=== PATIENT | male | born 1965 | race Caucasian/White ===

== ENCOUNTER 2019-07-25 05:40 | Inpatient (IN) | payer BC, OTHER ==
[~2019-07-25] VITALS: Ht 177.8 cm; Wt 101.1 kg
[2019-07-25] VITALS (17 sets, daily range): BP systolic 95–200; BP diastolic 52–109
[~2019-07-25 05:40] MED LIST: AMLO-363 PO; ASPI-529 PO; CARV-50 PO; CLOP75TA35 PO; FLO0.4C PO; heparin 10,000 units/1 ML INJ ONE; papaverine 30 mg/ml 2ml inj. ONE
[2019-07-25] MEDS ORDERED: aspirin 81mg tab.chew PO ONE ×2 (05:55)
[2019-07-25] MEDS ORDERED: normal saline 1000ML IV soln IVB ONE (05:55)
[2019-07-25] MEDS ORDERED: fentaNYL/PF 50MCG/1 ML 2ML syringe ONE (06:03)
[2019-07-25] MEDS ORDERED: midazolam 2 mg/2 ml injection ONE (06:03)
[2019-07-25] MEDS ORDERED: iohexol 350 MG/1 ML 200ml bottle ONE (06:04)
[2019-07-25] MEDS ORDERED: heparin 1,000unit/ml 10ml vial 10 ML ONE (06:04)
[2019-07-25] MEDS ORDERED: LIDOcaine 1% (10mg/ml)w/preservative injection 20ml MDV ONE (06:04)
[2019-07-25 06:06] LABS: EOSINOPHILS # (AUTO) 0.4 X10'3 (0-0.9); MONOCYTES # (AUTO) 0.9 X10'3 (0-0.9)
[2019-07-25] MEDS ORDERED: AZIL1TAB2 PO (06:08)
[2019-07-25] MEDS ORDERED: ASPI-1265 PO (06:08)
[2019-07-25] MEDS: nitroGLYCERIN-Tridil 50MG/D5W 250 ML IV PRN ×2 (06:16→07:28)
--- NOTE | 2019-07-25 06:16 | NUR ---
Pt transported to manager cath lab at this time with indoor plant technician.
[2019-07-25 06:23] LABS: BASOPHILS # (AUTO) 0.1 X10'3 (0-0.2); BASOPHILS % (AUTO) 0.7 % (0-1); EOSINOPHILS % (AUTO) 4.8 % (0-6); HEMATOCRIT 48.6 % (42.0-52.0); HEMOGLOBIN 16.4 g/dl (14.0-17.9); LYMPHOCYTES # (AUTO) 2.8 X10'3 (1.1-4.8); MEAN CORPUSCULAR HEMOGLOBIN 29.7 PG (27.0-31.0); MEAN CORPUSCULAR HGB CONC 33.8 g/dL (33.0-36.5); MEAN PLATELET VOLUME 8.9 FL (7.4-10.4); MONOCYTES % (AUTO) 10.8 % (2-12); NEUTROPHILS # (AUTO) 3.9 X10'3 (1.8-7.7); NEUTROPHILS % (AUTO) 48.7 % (42-75); PLATELET COUNT 226 X10'3 (140-440); RED BLOOD COUNT 5.52 X10'6 (4.70-6.10); RED CELL DISTRIBUTION WIDTH 13.3 % (11.5-14.5)
[2019-07-25 06:28] LABS: ALANINE AMINOTRANSFERASE 26 U/L (12-78); ALBUMIN 3.8 G/DL (3.4-5.0); ALBUMIN/GLOBULIN RATIO 1.1 (1.1-1.5); ALKALINE PHOSPHATASE 89 IU/L (46-116); ANION GAP 11 (8-16); ASPARTATE AMINO TRANSFERASE 21 U/L (10-37); BILIRUBIN,TOTAL 0.9 MG/DL (0.1-1.0); BLOOD UREA NITROGEN 16 MG/DL (7-18); BUN/CREATININE RATIO 13.8 (5.4-32.0); CALCIUM 8.9 MG/DL (8.5-10.1); CHLORIDE 107 MMOL/L (99-107); CREATININE 1.16 MG/DL (0.60-1.10); GLUCOSE 108 MG/DL (70-104); POTASSIUM 3.2 MMOL/L (3.5-5.1); SODIUM 144 MMOL/L (135-145); TOTAL CARBON DIOXIDE 26.2 MMOL/L (24-32); TOTAL PROTEIN 7.3 G/DL (6.4-8.2); eGFR 66 ML/MIN
[2019-07-25] MEDS ORDERED: atropine 0.1mg/ml 10ml syringe ONE (06:35)
[2019-07-25 06:38] LABS: PARTIAL THROMBOPLASTIN TIME 26 SECONDS (22-32)
[2019-07-25 06:44] LABS: MAGNESIUM 2.3 MG/DL (1.5-2.4)
[2019-07-25] MEDS ORDERED: Insulin Reg/NS 100units/100mL 100 ML IV SCH ×2 (07:07→14:41)
[2019-07-25] MEDS ORDERED: gabapentin 400mg capsule PO ONE (07:10)
[2019-07-25] MEDS ORDERED: MESSAGE TO NURSING PO ONE ×5 (07:10→10:00)
[2019-07-25] MEDS ORDERED: MALTODEXTRIN/FRUCTOSE 0.68 KCAL/ML LIQUID 296ML BOTTLE PO ONE (07:10)
[2019-07-25] MEDS ORDERED: magnesium 4gm in 100ml NS 100 ML IV PRN (07:10)
[2019-07-25] MEDS ORDERED: potassium Cl 20mEq/100mL bag 100 ML IV PRN (07:10)
[2019-07-25] MEDS ORDERED: dextrose 50%-water 50ml dispensing syringe IV PRN ×2 (07:10→14:45)
[2019-07-25] MEDS ORDERED: insulin glargine (Lantus) pen - multi-dose SQ PRN ×2 (07:10→14:45)
[2019-07-25] MEDS ORDERED: cefazolin/dext.iso 2gm/50ml 50 ML IV ONE (07:10)
[2019-07-25] MEDS ORDERED: magnesium 2GM in 50ml NS 50 ML IV PRN (07:10)
[2019-07-25] MEDS ORDERED: potassium Cl 20 mEq SR tablet PO PRN ×2 (07:10→14:45)
[2019-07-25] MEDS ORDERED: vancomycin/NS 1 GM ADD-VANTAGE 250 ML IV ONE (07:10)
--- NOTE | 2019-07-25 07:30 | NUR ---
received from tailings dam laborer. placed on monitor, Barbi DE LEÓN talked with pt.
[2019-07-25] MEDS ORDERED: metoprolol tartrate 12.5mg (1/2 tablet) PO SCH (08:00)
[2019-07-25] MEDS ORDERED: mupirocin 2% nasal ointment 1gm UD NS SCH (08:00)
[2019-07-25] MEDS ORDERED: heparin 25,000 UNIT/250ml bag 250 ML IV SCH (08:22)
[2019-07-25] MEDS ORDERED: heparin 10,000 units/1 ML INJ IV PRN (08:25)
[2019-07-25] MEDS ORDERED: acetaminophen 325mg tablet PO PRN ×3 (08:25→14:45)
[2019-07-25] MEDS ORDERED: heparin 10,000 units/1 ML INJ IV ONE (08:25)
[2019-07-25] MEDS ORDERED: proCHLORperazine 10 MG/2 ml inj IV PRN (08:25)
[2019-07-25] MEDS ORDERED: ondansetron/PF 4mg/2ml inj IV PRN ×2 (08:25→14:45)
[2019-07-25] MEDS ORDERED: HYDROcodone/acetaminophen 10/325mg tab PO PRN (08:25)
[2019-07-25] MEDS ORDERED: HYDROcodone/acetaminophen 5mg/325mg tablet PO PRN (08:25)
[2019-07-25] MEDS ORDERED: ringers solution, lacted 1,000 ML IV ONE (08:35)
[2019-07-25 08:42] LABS: ALBUMIN 3.4 G/DL (3.4-5.0); ANION GAP 10 (8-16); BLOOD UREA NITROGEN 14 MG/DL (7-18); BUN/CREATININE RATIO 12.4 (5.4-32.0); CALCIUM 8.3 MG/DL (8.5-10.1); CHLORIDE 108 MMOL/L (99-107); CHOL/HDL RATIO 4.9 (0.00-4.99); CHOLESTEROL 249 MG/DL (0-200); CREATININE 1.13 MG/DL (0.60-1.10); GLUCOSE 125 MG/DL (70-104); HDL CHOLESTEROL 51 MG/DL (35-60); LDL CHOLESTEROL 166 MG/DL (50-100); POTASSIUM 3.3 MMOL/L (3.5-5.1); SODIUM 142 MMOL/L (135-145); TOTAL CARBON DIOXIDE 24.4 MMOL/L (24-32); TRIGLYCERIDES 41 MG/DL (20-135); eGFR 68 ML/MIN
[2019-07-25 08:50] LABS: ABG BASE EXCESS -0.9 mmol/L (-2.0-3.0); ABG HCO3 23.6 mmol/L (22.0-26.0); ABG OXYGEN SATURATION 94.1 % (95-98); ABG PO2 (T) 69.4 mmHg (83-108); ALLEN'S TEST POSITIVE; FCOHb 1.4 % (0.5-1.5); FMetHb 0.3 % (0.3-1.12); FO2Hb 92.5 % (94-100); TOTAL HEMOGLOBIN 15.6 G/dl (14.0-17.9)
[2019-07-25 08:59] LABS: HEMOGLOBIN A1C 5.6 % (4.5-6.2)
--- NOTE | 2019-07-25 09:15 | NUR ---
report to Rafita PATIÑO. BP labile on NTG gtt. at rest 90-100 when talking on phone or interacting with staff up to SBP up to 200.
[2019-07-25] MEDS ORDERED: SUFENTANIL CITRATE 50 MCG/ML 2ml ampule IV ONE (09:51)
[2019-07-25] MEDS ORDERED: MIDAZolam 1mg/ml 10ml vial ONE (09:51)
[2019-07-25] MEDS ORDERED: 0.9 % SODIUM CHLORIDE 10 ML VIAL ONE ×5 (09:51→11:25)
[2019-07-25] MEDS ORDERED: heparin 10,000 units/1 ML INJ IR ONE (10:00)
[2019-07-25] MEDS ORDERED: papaverine 30 mg/ml 2ml inj. IA ONE (10:10)
[2019-07-25] MEDS ORDERED: isoflurane 100ml inhalation liquid IH ONE (10:15)
[2019-07-25] MEDS ORDERED: heparin 1,000 units/ml 10ml inj ONE (10:15)
[2019-07-25] MEDS ORDERED: DOPamine/D5W 400mg/250ml bag IV ONE (10:15)
[2019-07-25] MEDS ORDERED: protamine sulf. 10mg/ml inj. IV ONE (10:15)
[2019-07-25] MEDS ORDERED: NORepinephrine 8 MG in NS 250 ML BAG (32 mcg/ml) IV ONE (10:15)
[2019-07-25] MEDS ORDERED: nitroGLYCERIN in D5W 50mg/250ml (Tridil) infusion IV ONE (10:15)
[2019-07-25] MEDS ORDERED: aminocaproic acid 250 MG/1 ML inj. ONE (10:15)
--- NOTE | 2019-07-25 10:20 | NUR ---
Pt off unit to CVOR.
[2019-07-25 11:05] LABS: ABG BASE EXCESS -2.1 mmol/L (-2.0-3.0); ABG HCO3 24.3 mmol/L (22.0-26.0); ABG OXYGEN SATURATION 99.2 % (95-98); ABG PCO2 47.6 mmHg (35.0-45.0); ABG PH 7.326 (7.350-7.450); ABG PO2 223.9 mmHg (60.0-100.0); CL (ABG) 105 mmol/L (99-107); FCOHb 1.5 % (0.5-1.5); FMetHb 0.3 % (0.3-1.12); FO2Hb 97.4 % (94-100); GLUCOSE (ABG) 172 mg/dl (70-104); IONIZED CA (ABG) 1.14 mmol/L (1.03-1.32); K (ABG) 3.1 mmol/L (3.3-5.1); NA (ABG) 138 mmol/L (135-145); TOTAL HEMOGLOBIN 14.7 G/dl (14.0-17.9)
[2019-07-25] MEDS ORDERED: ceFAZolin 1000mg inj ONE (11:16)
[2019-07-25] MEDS ORDERED: metoclopramide 5 mg/ml inj ONE (11:24)
[2019-07-25] MEDS ORDERED: LIDOcaine 2% (20mg/ml) 5ml vial ONE (11:25)
[2019-07-25] MEDS ORDERED: phenylephrine 10mg/ml inj. ONE (11:25)
[2019-07-25] MEDS ORDERED: ePHEDrine 50MG/ML INJ. ONE (11:25)
[2019-07-25] MEDS ORDERED: rocuronium 10mg/ml inj IV ONE ×2 (11:25)
[2019-07-25] MEDS ORDERED: propofol inj 20 ML IV ONE (11:25)
[2019-07-25] MEDS ORDERED: pancuronium br 1mg/ml inj IV ONE (11:42)
[2019-07-25 11:46] LABS: ABG BASE EXCESS -2.1 mmol/L (-2.0-3.0); ABG HCO3 22.3 mmol/L (22.0-26.0); ABG OXYGEN SATURATION 99.4 % (95-98); ABG PCO2 37.4 mmHg (35.0-45.0); ABG PH 7.394 (7.350-7.450); ABG PO2 236.8 mmHg (60.0-100.0); CL (ABG) 105 mmol/L (99-107); FCOHb 1.5 % (0.5-1.5); FMetHb 0.1 % (0.3-1.12); FO2Hb 97.8 % (94-100); GLUCOSE (ABG) 140 mg/dl (70-104); IONIZED CA (ABG) 1.11 mmol/L (1.03-1.32); K (ABG) 3.4 mmol/L (3.3-5.1); NA (ABG) 136 mmol/L (135-145); TOTAL HEMOGLOBIN 14.1 G/dl (14.0-17.9)
[2019-07-25] MEDS ORDERED: midazolam 2 mg/2 ml injection IV ONE (12:10)
[2019-07-25] MEDS ORDERED: fentaNYL/PF 50MCG/1 ML 2ML syringe IV PRN (12:10)
[2019-07-25 12:21] LABS: ABG BASE EXCESS -0.9 mmol/L (-2.0-3.0); ABG HCO3 23.1 mmol/L (22.0-26.0); ABG OXYGEN SATURATION 99.2 % (95-98); ABG PCO2 35.8 mmHg (35.0-45.0); ABG PH 7.427 (7.350-7.450); ABG PO2 243.4 mmHg (60.0-100.0); CL (ABG) 104 mmol/L (99-107); FCOHb 1.2 % (0.5-1.5); FMetHb 0.5 % (0.3-1.12); FO2Hb 97.5 % (94-100); GLUCOSE (ABG) 119 mg/dl (70-104); IONIZED CA (ABG) 1.04 mmol/L (1.03-1.32); K (ABG) 4.1 mmol/L (3.3-5.1); NA (ABG) 133 mmol/L (135-145); TOTAL HEMOGLOBIN 12.6 G/dl (14.0-17.9)
[2019-07-25 12:40] LABS: ABG BASE EXCESS -2.9 mmol/L (-2.0-3.0); ABG OXYGEN SATURATION 99.1 % (95-98); ABG PCO2 38.9 mmHg (35.0-45.0); ABG PH 7.371 (7.350-7.450); ABG PO2 230.3 mmHg (60.0-100.0); CL (ABG) 104 mmol/L (99-107); FCOHb 1.1 % (0.5-1.5); FMetHb 0.5 % (0.3-1.12); FO2Hb 97.5 % (94-100); GLUCOSE (ABG) 115 mg/dl (70-104); IONIZED CA (ABG) 1.08 mmol/L (1.03-1.32); K (ABG) 4.3 mmol/L (3.3-5.1); NA (ABG) 134 mmol/L (135-145); TOTAL HEMOGLOBIN 13.1 G/dl (14.0-17.9)
[2019-07-25 13:00] LABS: ABG BASE EXCESS -2.4 mmol/L (-2.0-3.0); ABG HCO3 23.4 mmol/L (22.0-26.0); ABG OXYGEN SATURATION 99.1 % (95-98); ABG PCO2 44.1 mmHg (35.0-45.0); ABG PH 7.343 (7.350-7.450); ABG PO2 236.1 mmHg (60.0-100.0); CL (ABG) 104 mmol/L (99-107); FCOHb 1.1 % (0.5-1.5); FMetHb 0.6 % (0.3-1.12); FO2Hb 97.4 % (94-100); GLUCOSE (ABG) 132 mg/dl (70-104); IONIZED CA (ABG) 1.08 mmol/L (1.03-1.32); K (ABG) 4.3 mmol/L (3.3-5.1); NA (ABG) 135 mmol/L (135-145); TOTAL HEMOGLOBIN 13.1 G/dl (14.0-17.9)
[2019-07-25 13:35] LABS: ABG BASE EXCESS 0.1 mmol/L (-2.0-3.0); ABG HCO3 26.2 mmol/L (22.0-26.0); ABG OXYGEN SATURATION 98.1 % (95-98); ABG PCO2 48.7 mmHg (35.0-45.0); ABG PH 7.348 (7.350-7.450); ABG PO2 126.7 mmHg (60.0-100.0); CL (ABG) 102 mmol/L (99-107); FCOHb 1.3 % (0.5-1.5); FMetHb 0.5 % (0.3-1.12); FO2Hb 96.3 % (94-100); GLUCOSE (ABG) 138 mg/dl (70-104); IONIZED CA (ABG) 1.45 mmol/L (1.03-1.32); K (ABG) 4.1 mmol/L (3.3-5.1); NA (ABG) 132 mmol/L (135-145); TOTAL HEMOGLOBIN 12.1 G/dl (14.0-17.9)
[2019-07-25 13:51] LABS: ABG BASE EXCESS -2.2 mmol/L (-2.0-3.0); ABG HCO3 21.9 mmol/L (22.0-26.0); ABG OXYGEN SATURATION 97.2 % (95-98); ABG PCO2 35.5 mmHg (35.0-45.0); ABG PH 7.409 (7.350-7.450); ABG PO2 94.9 mmHg (60.0-100.0); CL (ABG) 104 mmol/L (99-107); FCOHb 1.1 % (0.5-1.5); FMetHb 0.4 % (0.3-1.12); FO2Hb 95.7 % (94-100); GLUCOSE (ABG) 130 mg/dl (70-104); IONIZED CA (ABG) 1.23 mmol/L (1.03-1.32); K (ABG) 4.1 mmol/L (3.3-5.1); NA (ABG) 133 mmol/L (135-145); TOTAL HEMOGLOBIN 12.1 G/dl (14.0-17.9)
--- NOTE | 2019-07-25 14:40 | NUR ---
Received to room , accompanied by MDs and surgical crew. Placed on ventilator, to environmental monitoring specialist, arterial line and PA line pressure monitored. Chest tubes to suction at 20 cm. Farrell cath to gravity drainage. Dressings are dry and intact. See assessment record. All vasoactive drugs are infusing via central line.
[2019-07-25] MEDS ORDERED: nitroGLYCERIN-Tridil 50MG/D5W 250 ML IV PRN ×2 (14:41→14:55)
[2019-07-25] MEDS ORDERED: niCARDipine-NS 40mg/200ml IVPB 200 ML IV PRN ×2 (14:41→14:55)
[2019-07-25] MEDS ORDERED: DOPamine 400mg/D5W 250ml 250 ML IV PRN ×2 (14:41→14:54)
[2019-07-25] MEDS ORDERED: magnesium citrate 296ml oral solution PO PRN (14:45)
[2019-07-25] MEDS ORDERED: normal saline 250ml IV soln 250 ML IV PRN (14:45)
[2019-07-25] MEDS ORDERED: pantoprazole 40 MG vial IV ONE (14:45)
[2019-07-25] MEDS ORDERED: mineral oil 133ml enema RC PRN (14:45)
[2019-07-25] MEDS ORDERED: Neutra Phos packet PO PRN (14:45)
[2019-07-25] MEDS ORDERED: magnesium hydroxide 30ml (MOM) UD suspension PO PRN (14:45)
[2019-07-25] MEDS ORDERED: morphine 4 MG/ML inj SYRINge IV PRN (14:45)
[2019-07-25] MEDS ORDERED: sodium phosphate inj. 30 MMOL in dextrose 5%-water 250 ML IV PRN (14:45)
[2019-07-25] MEDS ORDERED: metoclopramide 5 mg/ml inj IV PRN (14:45)
[2019-07-25] MEDS ORDERED: bisacodyl 10mg suppository rectal RC PRN (14:45)
[2019-07-25] MEDS ORDERED: sodium phosphate inj. 15 MMOL in dextrose 5%-water 250 ML IV PRN (14:45)
[2019-07-25] MEDS ORDERED: ceFAZolin 1GM/D5W- ADD-VANTAGE 50 ML IV ONE (14:55)
[2019-07-25 15:05] LABS: ABG BASE EXCESS -3.1 mmol/L (-2.0-3.0); ABG HCO3 21.6 mmol/L (22.0-26.0); ABG OXYGEN SATURATION 96.8 % (95-98); ABG PCO2 (T) 37.7 mmHg (35.0-45.0); ABG PH (T) 7.376 (7.350-7.450); FCOHb 0.7 % (0.5-1.5); FLOW 35 L/min; FMetHb 0.4 % (0.3-1.12); FO2Hb 95.7 % (94-100); PEEP 5 cm H2O; RESPIRATORY RATE 14 b/min; TIDAL VOLUME 650 mL; TOTAL HEMOGLOBIN 14.7 G/dl (14.0-17.9)
[2019-07-25] MEDS: ceFAZolin 1GM/D5W- ADD-VANTAGE 50 ML IV SCH (15:09)
[2019-07-25] MEDS: Insulin Reg/NS 100units/100mL 100 ML IV SCH (15:13)
[2019-07-25] MEDS: sodium chloride 0.45% 1,000 ML IV SCH (15:14)
[2019-07-25 15:21] LABS: BASOPHILS % (AUTO) 0.1 % (0-1); EOSINOPHILS # (AUTO) 0.1 X10'3 (0-0.9); EOSINOPHILS % (AUTO) 0.5 % (0-6); HEMATOCRIT 42.5 % (42.0-52.0); HEMOGLOBIN 14.1 g/dl (14.0-17.9); LYMPHOCYTES # (AUTO) 0.8 X10'3 (1.1-4.8); LYMPHOCYTES % (AUTO) 4.1 % (21-51); MEAN CORPUSCULAR HEMOGLOBIN 29.5 PG (27.0-31.0); MEAN CORPUSCULAR HGB CONC 33.2 g/dL (33.0-36.5); MEAN CORPUSCULAR VOLUME 88.7 FL (78-98); MEAN PLATELET VOLUME 9.2 FL (7.4-10.4); MONOCYTES # (AUTO) 0.5 X10'3 (0-0.9); MONOCYTES % (AUTO) 2.9 % (2-12); NEUTROPHILS % (AUTO) 92.4 % (42-75); PLATELET COUNT 176 X10'3 (140-440); RED BLOOD COUNT 4.79 X10'6 (4.70-6.10); RED CELL DISTRIBUTION WIDTH 13.7 % (11.5-14.5); WHITE BLOOD COUNT 18.4 X10'3 (4.5-11.0)
[2019-07-25 15:34] LABS: ALANINE AMINOTRANSFERASE 21 U/L (12-78); ALBUMIN 3.2 G/DL (3.4-5.0); ALBUMIN/GLOBULIN RATIO 1.5 (1.1-1.5); ALKALINE PHOSPHATASE 65 IU/L (46-116); ANION GAP 7 (8-16); ASPARTATE AMINO TRANSFERASE 34 U/L (10-37); BILIRUBIN,TOTAL 1.3 MG/DL (0.1-1.0); BLOOD UREA NITROGEN 14 MG/DL (7-18); BUN/CREATININE RATIO 11.6 (5.4-32.0); CALCIUM 8.4 MG/DL (8.5-10.1); CHLORIDE 109 MMOL/L (99-107); CREATININE 1.21 MG/DL (0.60-1.10); GLUCOSE 149 MG/DL (70-104); MAGNESIUM 2.8 MG/DL (1.5-2.4); PHOSPHORUS 2.1 MG/DL (2.3-4.5); POTASSIUM 3.5 MMOL/L (3.5-5.1); SODIUM 141 MMOL/L (135-145); TOTAL CARBON DIOXIDE 24.7 MMOL/L (24-32); TOTAL PROTEIN 5.4 G/DL (6.4-8.2); eGFR 63 ML/MIN
[2019-07-25 15:58] LABS: PARTIAL THROMBOPLASTIN TIME 31 SECONDS (22-32)
--- NOTE | 2019-07-25 16:00 | NUR ---
Dr. Soni rounded. Discussed additional dose of Ancef ordered. Ordered to hold dose.
[2019-07-25] MEDS: potassium Cl 20mEq/100mL bag 100 ML IV PRN ×4 (16:07→23:30)
[2019-07-25] MEDS: morphine 4 MG/ML inj SYRINge IV PRN ×3 (16:25→22:15)
[2019-07-25] MEDS: albumin (Human) 5% 250ml 250 ML IV PRN ×2 (17:22→17:25)
[2019-07-25 17:36] LABS: ABG BASE EXCESS -5.7 mmol/L (-2.0-3.0); ABG HCO3 19.3 mmol/L (22.0-26.0); ABG OXYGEN SATURATION 93.9 % (95-98); ABG PCO2 (T) 36.2 mmHg (35.0-45.0); ABG PH (T) 7.345 (7.350-7.450); ABG PO2 (T) 74.7 mmHg (83-108); FMetHb 0.3 % (0.3-1.12); FO2Hb 93.6 % (94-100); PEEP 5 cm H2O; TOTAL HEMOGLOBIN 13.6 G/dl (14.0-17.9)
--- NOTE | 2019-07-25 18:10 | NUR ---
Problems reprioritized. Patient report given, questions answered & plan of care reviewed with KAYLYN Francis.
--- NOTE | 2019-07-25 18:40 | NUR ---
Received report on pt in room 2044 from KAYLYN Irene. Pt awake and alert, speech is clear, denied numbness and tingling, moving all extremities. Tridil, Dopamine, and Insulin infusing via CVL to maintain parameters. Pt on 4L NC maintaining O2 sat greater than 93. Chest tubes to suction at 20 cm with serosanguinous output, symmetrical rise and fall of chest cavity with no crepitus noted, dressings are clean, dry, and intact. On school bus monitor with arterial line, CVP, and PA line pressures monitored. Farrell cath to gravity drainage with optimal urine output. Bowel sounds hypoactive, pt only tolerating ice chips at this time. See assessment record.
--- NOTE | 2019-07-25 19:20 | NUR ---
Updated Dr Soni via phone on pts status.
[2019-07-25] MEDS: HYDROcodone/acetaminophen 10/325mg tab PO PRN (20:03)
[2019-07-25] MEDS: vancomycin/NS 1 GM ADD-VANTAGE 250 ML IV SCH (20:08)
[2019-07-25] MEDS: mupirocin 2% ointment 22GM NS SCH (20:08)
[2019-07-25] MEDS: gabapentin 300mg capsule PO SCH (20:13)
[2019-07-25] MEDS: sennosides/docusate sodium tablet PO SCH (20:13)
--- NOTE | 2019-07-25 20:15 | NUR ---
Spoke with pts , updated her on status and plan of care. All questions/concerns addressed.
--- NOTE | 2019-07-25 21:15 | NUR ---
Assisted pt to facetime and son.
[2019-07-25 21:56] LABS: BASOPHILS % (AUTO) 0.1 % (0-1); EOSINOPHILS % (AUTO) 0 % (0-6); HEMATOCRIT 37.7 % (42.0-52.0); HEMOGLOBIN 12.6 g/dl (14.0-17.9); LYMPHOCYTES # (AUTO) 0.3 X10'3 (1.1-4.8); MEAN CORPUSCULAR HGB CONC 33.5 g/dL (33.0-36.5); MEAN CORPUSCULAR VOLUME 89.6 FL (78-98); MEAN PLATELET VOLUME 9.1 FL (7.4-10.4); MONOCYTES # (AUTO) 0.4 X10'3 (0-0.9); MONOCYTES % (AUTO) 2.8 % (2-12); NEUTROPHILS # (AUTO) 13.7 X10'3 (1.8-7.7); NEUTROPHILS % (AUTO) 95.1 % (42-75); PLATELET COUNT 163 X10'3 (140-440); RED CELL DISTRIBUTION WIDTH 13.4 % (11.5-14.5); WHITE BLOOD COUNT 14.4 X10'3 (4.5-11.0)
[2019-07-25 22:08] LABS: ALBUMIN 3.4 G/DL (3.4-5.0); ANION GAP 11 (8-16); BLOOD UREA NITROGEN 13 MG/DL (7-18); BUN/CREATININE RATIO 9.2 (5.4-32.0); CHLORIDE 110 MMOL/L (99-107); CREATININE 1.41 MG/DL (0.60-1.10); GLUCOSE 119 MG/DL (70-104); PHOSPHORUS 2.5 MG/DL (2.3-4.5); POTASSIUM 3.7 MMOL/L (3.5-5.1); SODIUM 145 MMOL/L (135-145); TOTAL CARBON DIOXIDE 23.8 MMOL/L (24-32); eGFR 53 ML/MIN
--- NOTE | 2019-07-25 22:45 | NUR ---
Spoke with pts , updated on pts condition
--- NOTE | 2019-07-25 22:50 | NUR ---
Removed R groin sheath that was placed in laborer shaft sinking per Dr Soni. Held pressure manually for 20 mins and applied Femostop at 2245, no complications, pt tolerated well.
[2019-07-25] MEDS: magnesium 4gm in 100ml NS 100 ML IV PRN (23:43)
[2019-07-26] VITALS (24 sets, daily range): BP systolic 89–145; BP diastolic 43–100
[2019-07-26] MEDS: ceFAZolin 1GM/D5W- ADD-VANTAGE 50 ML IV SCH ×3 (00:07→16:11)
[2019-07-26] MEDS: potassium Cl 20mEq/100mL bag 100 ML IV PRN ×4 (01:00→05:48)
[2019-07-26] MEDS: HYDROcodone/acetaminophen 10/325mg tab PO PRN ×5 (01:00→19:07)
--- NOTE | 2019-07-26 01:15 | NUR ---
Spoke with pts , updated her on pts condition.
[2019-07-26 04:41] LABS: BASOPHILS % (AUTO) 0.1 % (0-1); EOSINOPHILS % (AUTO) 0 % (0-6); HEMATOCRIT 36.6 % (42.0-52.0); HEMOGLOBIN 12.3 g/dl (14.0-17.9); LYMPHOCYTES # (AUTO) 0.9 X10'3 (1.1-4.8); LYMPHOCYTES % (AUTO) 5.2 % (21-51); MEAN CORPUSCULAR HGB CONC 33.7 g/dL (33.0-36.5); MEAN PLATELET VOLUME 9.5 FL (7.4-10.4); MONOCYTES % (AUTO) 6.2 % (2-12); NEUTROPHILS # (AUTO) 14.4 X10'3 (1.8-7.7); NEUTROPHILS % (AUTO) 88.5 % (42-75); PLATELET COUNT 137 X10'3 (140-440); RED BLOOD COUNT 4.11 X10'6 (4.70-6.10); RED CELL DISTRIBUTION WIDTH 13.6 % (11.5-14.5); WHITE BLOOD COUNT 16.3 X10'3 (4.5-11.0)
[2019-07-26 04:51] LABS: ALANINE AMINOTRANSFERASE 22 U/L (12-78); ALBUMIN 3.2 G/DL (3.4-5.0); ALBUMIN/GLOBULIN RATIO 1.2 (1.1-1.5); ALKALINE PHOSPHATASE 54 IU/L (46-116); ANION GAP 8 (8-16); ASPARTATE AMINO TRANSFERASE 46 U/L (10-37); BILIRUBIN,TOTAL 1.3 MG/DL (0.1-1.0); BLOOD UREA NITROGEN 13 MG/DL (7-18); BUN/CREATININE RATIO 11.4 (5.4-32.0); CALCIUM 8.1 MG/DL (8.5-10.1); CHLORIDE 110 MMOL/L (99-107); CREATININE 1.14 MG/DL (0.60-1.10); GLUCOSE 115 MG/DL (70-104); MAGNESIUM 2.6 MG/DL (1.5-2.4); PHOSPHORUS 2.9 MG/DL (2.3-4.5); SODIUM 142 MMOL/L (135-145); TOTAL CARBON DIOXIDE 23.8 MMOL/L (24-32); TOTAL PROTEIN 5.8 G/DL (6.4-8.2); eGFR 67 ML/MIN
[2019-07-26 04:56] LABS: PARTIAL THROMBOPLASTIN TIME 24 SECONDS (22-32); POTASSIUM 4.4 MMOL/L (3.5-5.1)
--- NOTE | 2019-07-26 05:51 | NUR ---
Art line no longer working despite multiple interventions, removed per charge nurse.
[2019-07-26] MEDS ORDERED: famotidine/PF 10 mg/ml inj IV ONE (06:00)
[2019-07-26] MEDS ORDERED: LORazepam 2 mg/ml vial IV ONE (06:00)
--- NOTE | 2019-07-26 06:14 | NUR ---
Problems reprioritized. Patient report given, questions answered & plan of care reviewed with KAYLYN Damon.
[2019-07-26] MEDS: sennosides/docusate sodium tablet PO SCH ×2 (07:16→22:36)
[2019-07-26] MEDS: mupirocin 2% ointment 22GM NS SCH ×2 (07:16→22:37)
[2019-07-26] MEDS: aspirin 325mg tablet, delayed-release (Ecotrin) PO SCH (07:16)
[2019-07-26] MEDS: vancomycin/NS 1 GM ADD-VANTAGE 250 ML IV SCH ×2 (07:16→19:06)
[2019-07-26] MEDS: gabapentin 300mg capsule PO SCH ×3 (07:16→22:37)
[2019-07-26] MEDS: metoprolol tartrate 12.5mg (1/2 tablet) PO SCH ×2 (07:16→22:37)
[2019-07-26 07:55] LABS: ACTIVATED CLOTTING TIME 105 SEC (101-148)
[2019-07-26] MEDS ORDERED: atorvastatin 10mg tablet PO SCH (08:00)
[2019-07-26] MEDS ORDERED: ketorolac tromethamine 15mg/ml inj. IV ONE (09:00)
[2019-07-26] MEDS: ketorolac tromethamine 15mg/ml inj. IV SCH ×2 (13:34→19:09)
[2019-07-26] MEDS ORDERED: mineral oil/petrolatum ophthal oint EACHEYE SCH (14:00)
[2019-07-26] MEDS: Insulin Reg/NS 100units/100mL 100 ML IV SCH (23:06)
[2019-07-27] VITALS (24 sets, daily range): BP systolic 122–159; BP diastolic 69–102
[2019-07-27] MEDS: ceFAZolin 1GM/D5W- ADD-VANTAGE 50 ML IV SCH (00:07)
[2019-07-27] MEDS: ketorolac tromethamine 15mg/ml inj. IV SCH ×4 (02:07→19:53)
[2019-07-27 02:49] LABS: BASOPHILS % (AUTO) 0.1 % (0-1); EOSINOPHILS % (AUTO) 0 % (0-6); HEMATOCRIT 33.2 % (42.0-52.0); LYMPHOCYTES # (AUTO) 1.2 X10'3 (1.1-4.8); LYMPHOCYTES % (AUTO) 7.4 % (21-51); MEAN CORPUSCULAR HEMOGLOBIN 29.7 PG (27.0-31.0); MEAN CORPUSCULAR HGB CONC 33.1 g/dL (33.0-36.5); MEAN CORPUSCULAR VOLUME 89.7 FL (78-98); MEAN PLATELET VOLUME 9.1 FL (7.4-10.4); MONOCYTES # (AUTO) 1.1 X10'3 (0-0.9); MONOCYTES % (AUTO) 6.8 % (2-12); NEUTROPHILS % (AUTO) 85.7 % (42-75); PLATELET COUNT 121 X10'3 (140-440); RED CELL DISTRIBUTION WIDTH 13.6 % (11.5-14.5); WHITE BLOOD COUNT 16.3 X10'3 (4.5-11.0)
[2019-07-27 02:58] LABS: ANION GAP 7 (8-16); BLOOD UREA NITROGEN 25 MG/DL (7-18); BUN/CREATININE RATIO 21.6 (5.4-32.0); CALCIUM 8.1 MG/DL (8.5-10.1); CHLORIDE 108 MMOL/L (99-107); CREATININE 1.16 MG/DL (0.60-1.10); GLUCOSE 131 MG/DL (70-104); MAGNESIUM 2.2 MG/DL (1.5-2.4); PHOSPHORUS 3.2 MG/DL (2.3-4.5); POTASSIUM 4.7 MMOL/L (3.5-5.1); SODIUM 142 MMOL/L (135-145); TOTAL CARBON DIOXIDE 26.9 MMOL/L (24-32); eGFR 66 ML/MIN
[2019-07-27] MEDS: HYDROcodone/acetaminophen 10/325mg tab PO PRN ×3 (04:12→19:53)
[2019-07-27] MEDS: magnesium 2GM in 50ml NS 50 ML IV PRN (04:44)
[2019-07-27] MEDS ORDERED: furosemide 40mg/4ml inj IV ONE (06:55)
[2019-07-27] MEDS: gabapentin 300mg capsule PO SCH ×2 (07:18→13:31)
[2019-07-27] MEDS: pantoprazole 40mg Tablet.DR PO SCH (07:18)
[2019-07-27] MEDS: sennosides/docusate sodium tablet PO SCH ×2 (07:18→19:52)
[2019-07-27] MEDS: aspirin 325mg tablet, delayed-release (Ecotrin) PO SCH (07:19)
[2019-07-27] MEDS: losartan 25mg tablet PO SCH (07:19)
[2019-07-27] MEDS: mupirocin 2% ointment 22GM NS SCH (07:19)
[2019-07-27] MEDS: metoprolol tartrate 12.5mg (1/2 tablet) PO SCH ×2 (07:19→19:53)
--- NOTE | 2019-07-27 11:15 | NUR ---
CABG Consult: Pt s/p CABGx3 PO 100% avg NCS diet good PO post-op. Pt seen by RD for written/verbal CABG/HH diet eds w/ RD contact information provided. Pt reports strong appetite and is agreeable to double eggs at breakfast and double meats BIDLD for additional proteins; dietary notified. Pt reports typically eats high quantity of red meats; RD encouraged lower saturated fat protein sources as well importance of daily fiber intake/vegetable varieties. Will continue to monitor. Addendum: 07/27/19 at [address] Amended: Links added.
[2019-07-27] MEDS: sodium chloride 0.45% 1,000 ML IV SCH (14:41)
--- NOTE | 2019-07-27 18:06 | NUR ---
Problems reprioritized. Patient report given, questions answered & plan of care reviewed with Rn.
[2019-07-28] VITALS (24 sets, daily range): BP systolic 118–179; BP diastolic 65–98
[2019-07-28] MEDS: ketorolac tromethamine 15mg/ml inj. IV SCH ×4 (01:27→21:03)
[2019-07-28] MEDS: HYDROcodone/acetaminophen 10/325mg tab PO PRN ×2 (01:28→14:19)
[2019-07-28 02:04] LABS: BASOPHILS % (AUTO) 0.4 % (0-1); EOSINOPHILS # (AUTO) 0.1 X10'3 (0-0.9); EOSINOPHILS % (AUTO) 0.6 % (0-6); HEMATOCRIT 32.4 % (42.0-52.0); HEMOGLOBIN 11.1 g/dl (14.0-17.9); LYMPHOCYTES # (AUTO) 1.9 X10'3 (1.1-4.8); LYMPHOCYTES % (AUTO) 17.7 % (21-51); MEAN CORPUSCULAR HEMOGLOBIN 30.5 PG (27.0-31.0); MEAN CORPUSCULAR HGB CONC 34.3 g/dL (33.0-36.5); MEAN CORPUSCULAR VOLUME 88.9 FL (78-98); MEAN PLATELET VOLUME 9.2 FL (7.4-10.4); MONOCYTES # (AUTO) 0.9 X10'3 (0-0.9); MONOCYTES % (AUTO) 8.6 % (2-12); NEUTROPHILS # (AUTO) 7.6 X10'3 (1.8-7.7); NEUTROPHILS % (AUTO) 72.7 % (42-75); PLATELET COUNT 122 X10'3 (140-440); RED BLOOD COUNT 3.65 X10'6 (4.70-6.10); RED CELL DISTRIBUTION WIDTH 13.3 % (11.5-14.5); WHITE BLOOD COUNT 10.5 X10'3 (4.5-11.0)
[2019-07-28 02:15] LABS: ALBUMIN 2.8 G/DL (3.4-5.0); ANION GAP 6 (8-16); BLOOD UREA NITROGEN 22 MG/DL (7-18); BUN/CREATININE RATIO 20.8 (5.4-32.0); CALCIUM 8.5 MG/DL (8.5-10.1); CHLORIDE 106 MMOL/L (99-107); CREATININE 1.06 MG/DL (0.60-1.10); GLUCOSE 109 MG/DL (70-104); MAGNESIUM 1.9 MG/DL (1.5-2.4); PHOSPHORUS 2.5 MG/DL (2.3-4.5); POTASSIUM 3.5 MMOL/L (3.5-5.1); SODIUM 142 MMOL/L (135-145); TOTAL CARBON DIOXIDE 30.1 MMOL/L (24-32); eGFR 73 ML/MIN
[2019-07-28] MEDS: potassium Cl 20mEq/100mL bag 100 ML IV PRN ×3 (02:35→04:41)
[2019-07-28] MEDS: magnesium 4gm in 100ml NS 100 ML IV PRN (05:53)
[2019-07-28] MEDS: sennosides/docusate sodium tablet PO SCH ×2 (07:36→20:00)
[2019-07-28] MEDS: losartan 25mg tablet PO SCH ×2 (07:36→12:14)
[2019-07-28] MEDS: pantoprazole 40mg Tablet.DR PO SCH (07:36)
[2019-07-28] MEDS: metoprolol tartrate 12.5mg (1/2 tablet) PO SCH ×2 (07:36→21:04)
[2019-07-28] MEDS: aspirin 325mg tablet, delayed-release (Ecotrin) PO SCH (07:36)
[2019-07-28 17:17] LABS: MAGNESIUM 2.1 MG/DL (1.5-2.4)
[2019-07-28] MEDS: magnesium 2GM in 50ml NS 50 ML IV PRN (17:26)
--- NOTE | 2019-07-28 18:22 | NUR ---
Problems reprioritized. Patient report given, questions answered & plan of care reviewed with KAYLYN Torres.
[2019-07-29] VITALS (10 sets, daily range): BP systolic 146–159; BP diastolic 78–105
[2019-07-29] MEDS: ketorolac tromethamine 15mg/ml inj. IV SCH ×2 (02:08→07:43)
[2019-07-29 03:28] LABS: BASOPHILS % (AUTO) 0.4 % (0-1); EOSINOPHILS # (AUTO) 0.3 X10'3 (0-0.9); EOSINOPHILS % (AUTO) 3.1 % (0-6); HEMATOCRIT 35.2 % (42.0-52.0); LYMPHOCYTES # (AUTO) 1.5 X10'3 (1.1-4.8); LYMPHOCYTES % (AUTO) 17.2 % (21-51); MEAN CORPUSCULAR HEMOGLOBIN 30.2 PG (27.0-31.0); MEAN CORPUSCULAR HGB CONC 34.1 g/dL (33.0-36.5); MEAN CORPUSCULAR VOLUME 88.8 FL (78-98); MONOCYTES # (AUTO) 0.8 X10'3 (0-0.9); MONOCYTES % (AUTO) 9.7 % (2-12); NEUTROPHILS # (AUTO) 5.9 X10'3 (1.8-7.7); NEUTROPHILS % (AUTO) 69.6 % (42-75); PLATELET COUNT 154 X10'3 (140-440); RED BLOOD COUNT 3.96 X10'6 (4.70-6.10); RED CELL DISTRIBUTION WIDTH 13.1 % (11.5-14.5); WHITE BLOOD COUNT 8.5 X10'3 (4.5-11.0)
[2019-07-29 03:38] LABS: ALBUMIN 2.9 G/DL (3.4-5.0); ANION GAP 5 (8-16); BLOOD UREA NITROGEN 16 MG/DL (7-18); BUN/CREATININE RATIO 15.7 (5.4-32.0); CHLORIDE 107 MMOL/L (99-107); CREATININE 1.02 MG/DL (0.60-1.10); GLUCOSE 106 MG/DL (70-104); MAGNESIUM 2.2 MG/DL (1.5-2.4); POTASSIUM 3.9 MMOL/L (3.5-5.1); SODIUM 140 MMOL/L (135-145); TOTAL CARBON DIOXIDE 27.8 MMOL/L (24-32); eGFR 77 ML/MIN
[2019-07-29] MEDS: potassium Cl 20mEq/100mL bag 100 ML IV PRN ×2 (04:20→04:26)
[2019-07-29] MEDS: magnesium 2GM in 50ml NS 50 ML IV PRN (04:22)
[2019-07-29] MEDS: pantoprazole 40mg Tablet.DR PO SCH (07:43)
[2019-07-29] MEDS: metoprolol tartrate 12.5mg (1/2 tablet) PO SCH (07:43)
[2019-07-29] MEDS: losartan 25mg tablet PO SCH (07:44)
[2019-07-29] MEDS: sennosides/docusate sodium tablet PO SCH (07:50)
[2019-07-29] MEDS ORDERED: clopidogrel 75mg tablet PO SCH (08:00)
[2019-07-29] MEDS ORDERED: HYDR-4353 PO (08:09)
[2019-07-29] MEDS ORDERED: CLOP75TA35 PO (08:09)
[2019-07-29] MEDS ORDERED: METO25TA6 PO (08:09)
[2019-07-29] MEDS ORDERED: metoprolol tartrate 12.5mg (1/2 tablet) PO ONE (08:25)
[2019-07-29] MEDS ORDERED: aspirin 81mg tab.chew PO SCH (08:30)
[2019-07-29] MEDS ORDERED: metoprolol tartrate 25mg tablet PO SCH (20:00)
== END 2019-07-29 10:20 | disposition home health service (06) | DRG 232 ==
LOC: ER 05:41 → ICU 2S 07:07 → UNDOADMIN 07:07
PROVIDERS: ADMIT Thoracic Surgery (Cardiothoracic Vascular Surgery); ATTEND Thoracic Surgery (Cardiothoracic Vascular Surgery)
PROC: 02703ZZ Dilation of Coronary Artery, One Artery, Percutaneous Approach (ICD-10-PCS; 2019-07-25)
PROC: 021109W Bypass Coronary Artery, Two Arteries from Aorta with Autologous Venous Tissue, Open Approach (ICD-10-PCS; 2019-07-25)
PROC: 06BP4ZZ Excision of Right Saphenous Vein, Percutaneous Endoscopic Approach (ICD-10-PCS; 2019-07-25)
PROC: B2111ZZ Fluoroscopy of Multiple Coronary Arteries using Low Osmolar Contrast (ICD-10-PCS; 2019-07-25)
PROC: B2151ZZ Fluoroscopy of Left Heart using Low Osmolar Contrast (ICD-10-PCS; 2019-07-25)
PROC: 4A023N7 Measurement of Cardiac Sampling and Pressure, Left Heart, Percutaneous Approach (ICD-10-PCS; 2019-07-25)
PROC: B24BZZ4 Ultrasonography of Heart with Aorta, Transesophageal (ICD-10-PCS; 2019-07-25)
PROC: 5A1221Z Performance of Cardiac Output, Continuous (ICD-10-PCS; 2019-07-25)
PROC: 03HY32Z Insertion of Monitoring Device into Upper Artery, Percutaneous Approach (ICD-10-PCS; 2019-07-25)
PROC: 4A133B1 Monitoring of Arterial Pressure, Peripheral, Percutaneous Approach (ICD-10-PCS; 2019-07-25)
PROC: 4A133J1 Monitoring of Arterial Pulse, Peripheral, Percutaneous Approach (ICD-10-PCS; 2019-07-25)
PROC: 02HV33Z Insertion of Infusion Device into Superior Vena Cava, Percutaneous Approach (ICD-10-PCS; 2019-07-25)
PROC: B548ZZA Ultrasonography of Superior Vena Cava, Guidance (ICD-10-PCS; 2019-07-25)
PROC: 02100Z9 Bypass Coronary Artery, One Artery from Left Internal Mammary, Open Approach (ICD-10-PCS; principal; 2019-07-25 10:18)
DX: I21.19 ST elevation (STEMI) myocardial infarction involving other coronary artery of inferior wall (principal); E78.00 Pure hypercholesterolemia, unspecified; E78.5 Hyperlipidemia, unspecified; I10 Essential (primary) hypertension; M19.90 Unspecified osteoarthritis, unspecified site; I25.10 Atherosclerotic heart disease of native coronary artery without angina pectoris; I25.2 Old myocardial infarction; Z80.9 Family history of malignant neoplasm, unspecified; Z82.49 Family history of ischemic heart disease and other diseases of the circulatory system; Z87.442 Personal history of urinary calculi; Z95.5 Presence of coronary angioplasty implant and graft; Z79.899 Other long term (current) drug therapy
CPT/HCPCS: 0232T; 92920; 93312; 93325; 93458; 99285; Z7506; Z7508; 36415; 36600; 71045; 80048; 80053; 80061; 82330; 82435; 82803; 82947; 82948; 83036; 83735; 83880; 84100; 84132; 84295; 84484; 85018; 85025; 85347; 85384; 85610; 85730; 86870; 86885; 86900; 86901; 86922; 87070; 87081; 93005; 93880; 93970; 94002; 94010; 94668; 94760; 97161; 97530; 99152; A4618; A6258; A6402; A6449; A7000; A7048; C1713; C1725; C1751; C1769; C9113; G0378; J0461; J0690; J1265; J1644; J1815; J1885; J1940; J2001; J2060; J2250; J2270; J2370; J2440; J2704; J2720; J2765; J3010; J3370; J3475; J3480; J3490; J7030; J7040; J7050; J7120; P9045; Q9967

== ENCOUNTER 2020-02-20 08:29 | Inpatient (IN) | payer BC ==
[~2020-02-20] VITALS: Ht 177.8 cm; Wt 105.0 kg
[~2020-02-20 08:29] MED LIST changes: -AMLO-363 PO; +ASPI-1265 PO; -ASPI-529 PO; +AZIL1TAB2 PO; -CARV-50 PO; -FLO0.4C PO; +HYDR-4353 PO; +METO25TA6 PO; -heparin 10,000 units/1 ML INJ ONE; -papaverine 30 mg/ml 2ml inj. ONE
[2020-02-20] MEDS ORDERED: aspirin 81mg tab.chew PO ONE (08:45)
[2020-02-20 09:14] LABS: BASOPHILS # (AUTO) 0.1 X10'3 (0-0.2); BASOPHILS % (AUTO) 1.1 % (0-1); EOSINOPHILS # (AUTO) 0.2 X10'3 (0-0.9); EOSINOPHILS % (AUTO) 4.7 % (0-6); HEMATOCRIT 47.4 % (42.0-52.0); HEMOGLOBIN 16.4 g/dl (14.0-17.9); LYMPHOCYTES # (AUTO) 1.3 X10'3 (1.1-4.8); LYMPHOCYTES % (AUTO) 27.3 % (21-51); MEAN CORPUSCULAR HEMOGLOBIN 30.3 PG (27.0-31.0); MEAN CORPUSCULAR HGB CONC 34.7 g/dL (33.0-36.5); MEAN CORPUSCULAR VOLUME 87.5 FL (78-98); MEAN PLATELET VOLUME 9.2 FL (7.4-10.4); MONOCYTES # (AUTO) 0.5 X10'3 (0-0.9); MONOCYTES % (AUTO) 10.2 % (2-12); NEUTROPHILS # (AUTO) 2.8 X10'3 (1.8-7.7); NEUTROPHILS % (AUTO) 56.7 % (42-75); PLATELET COUNT 216 X10'3 (140-440); RED BLOOD COUNT 5.42 X10'6 (4.70-6.10); RED CELL DISTRIBUTION WIDTH 13.4 % (11.5-14.5); WHITE BLOOD COUNT 4.9 X10'3 (4.5-11.0)
[2020-02-20 09:18] LABS: PARTIAL THROMBOPLASTIN TIME 24 SECONDS (22-32)
[2020-02-20 09:20] LABS: ALKALINE PHOSPHATASE 108 IU/L (46-116)
[2020-02-20 09:28] LABS: ALANINE AMINOTRANSFERASE 26 U/L (12-78); ALBUMIN 4.1 G/DL (3.4-5.0); ALBUMIN/GLOBULIN RATIO 1.1 (1.1-1.5); ANION GAP 8 (8-16); ASPARTATE AMINO TRANSFERASE 19 U/L (10-37); BLOOD UREA NITROGEN 26 MG/DL (7-18); BUN/CREATININE RATIO 19.5 (5.4-32.0); CALCIUM 9.3 MG/DL (8.5-10.1); CHLORIDE 105 MMOL/L (99-107); CREATININE 1.33 MG/DL (0.60-1.10); GLUCOSE 119 MG/DL (70-104); MAGNESIUM 2.1 MG/DL (1.5-2.4); POTASSIUM 3.5 MMOL/L (3.5-5.1); SODIUM 140 MMOL/L (135-145); TOTAL CARBON DIOXIDE 26.8 MMOL/L (24-32); TOTAL PROTEIN 7.7 G/DL (6.4-8.2); eGFR 56 ML/MIN
[2020-02-20] MEDS ORDERED: METO-539 PO (10:07)
[2020-02-20] MEDS ORDERED: CLOP75TA15 PO (10:07)
[2020-02-20] MEDS ORDERED: CHLO25TA10 PO (10:07)
[2020-02-20] MEDS ORDERED: LOSA100T57 PO (10:07)
[2020-02-20] MEDS ORDERED: METO25TA6 PO (10:10)
--- NOTE | 2020-02-20 10:21 | NUR ---
DR ALVES IN ROOM TO EVAL PT FOR ADMIT.
[2020-02-20] MEDS ORDERED: mag hydrox/Alum hydrox/simeth 30ml oral suspension PO PRN (10:30)
[2020-02-20] MEDS ORDERED: ondansetron/PF 4mg/2ml inj IV PRN (10:30)
[2020-02-20] MEDS ORDERED: acetaminophen 325mg tablet PO PRN ×2 (10:30)
[2020-02-20] MEDS ORDERED: morphine 2 MG/ML inj. syringe IV PRN ×2 (10:30)
[2020-02-20] MEDS ORDERED: HYDROcodone/acetaminophen 5mg/325mg tablet PO PRN (10:30)
[2020-02-20] MEDS ORDERED: enoxaparin 100mg/ml syringe SUBCUT ONE (10:30)
[2020-02-20] MEDS ORDERED: nitroGLYCERIN 0.4mg SUBLingual tab SL PRN (10:30)
[2020-02-20] MEDS ORDERED: magnesium hydroxide 30ml (MOM) UD suspension PO PRN (10:30)
[2020-02-20] MEDS ORDERED: iohexol 350MG/ML 100ml bottle IV ONE (10:37)
[2020-02-20] MEDS: chlorthalidone 25mg tablet PO SCH (11:59)
--- NOTE | 2020-02-20 13:10 | NUR ---
PT GIVEN LUNCH TRAY.
--- NOTE | 2020-02-20 18:07 | NUR ---
PT DENIES PAIN OR SOB. ASKING WHAT TIME DINNER IS.
--- NOTE | 2020-02-20 19:12 | NUR ---
Pt resting in bed, given meal tray and assured comfortable. Pt denies any CP or SOB at this time. Vitals taken.
[2020-02-20] MEDS ORDERED: metoprolol tartrate 25mg tablet PO SCH (20:00)
[2020-02-20 21:00] VITALS: BP 160/104
[2020-02-20] MEDS ORDERED: losartan 50mg tablet PO SCH (21:00)
--- NOTE | 2020-02-20 21:55 | NUR ---
Patient arrived to room from ER in hospital bed. Oriented to room and unit. Call light within reach.
[2020-02-20 22:00] VITALS: BP 171/116
[2020-02-21 02:00] VITALS: BP 143/95
--- NOTE | 2020-02-21 06:01 | NUR ---
Orientee documentation: I have reviewed and agree with all interventions, medications given, assessments performed and documented by Julianne PATIÑO.
--- NOTE | 2020-02-21 06:15 | NUR ---
Problems reprioritized. Patient report given, questions answered & plan of care reviewed with KAYLYN Petit.
--- NOTE | 2020-02-21 06:28 | NUR ---
Patient in room PCU 3015. I have received report from Ashely/Julianne PATIÑO and had the opportunity to ask questions and assume patient care. Patient asleep and resting comfortably. In no acute distress. Will continue to monitor.
--- NOTE | 2020-02-21 06:46 | NUR ---
GENET Luke updated on result of CXR. Addendum: 02/21/20 at 0647 by Ashely Carey RN wrong patient
[2020-02-21 07:00] VITALS: BP 143/89
[2020-02-21] MEDS: chlorthalidone 25mg tablet PO SCH (07:36)
[2020-02-21] MEDS ORDERED: nitroGLYCERIN 0.4mg/hour patch TD SCH (08:00)
[2020-02-21] MEDS ORDERED: clopidogrel 75mg tablet PO SCH (08:00)
[2020-02-21] MEDS ORDERED: aspirin 81mg tab.chew PO SCH (08:00)
[2020-02-21] MEDS ORDERED: metoprolol succinate 25mg (24-HOUR) SR. Tablet PO SCH (08:00)
[2020-02-21 08:04] LABS: BASOPHILS % (AUTO) 0.8 % (0-1); EOSINOPHILS # (AUTO) 0.2 X10'3 (0-0.9); EOSINOPHILS % (AUTO) 4.1 % (0-6); HEMATOCRIT 47.8 % (42.0-52.0); HEMOGLOBIN 16.3 g/dl (14.0-17.9); LYMPHOCYTES # (AUTO) 1.3 X10'3 (1.1-4.8); LYMPHOCYTES % (AUTO) 22.1 % (21-51); MEAN CORPUSCULAR HEMOGLOBIN 29.9 PG (27.0-31.0); MEAN CORPUSCULAR VOLUME 87.9 FL (78-98); MEAN PLATELET VOLUME 9.5 FL (7.4-10.4); MONOCYTES # (AUTO) 0.6 X10'3 (0-0.9); MONOCYTES % (AUTO) 9.7 % (2-12); NEUTROPHILS # (AUTO) 3.7 X10'3 (1.8-7.7); NEUTROPHILS % (AUTO) 63.3 % (42-75); PLATELET COUNT 196 X10'3 (140-440); RED BLOOD COUNT 5.43 X10'6 (4.70-6.10); RED CELL DISTRIBUTION WIDTH 13.3 % (11.5-14.5); WHITE BLOOD COUNT 5.9 X10'3 (4.5-11.0)
[2020-02-21 08:35] LABS: ALBUMIN 3.7 G/DL (3.4-5.0); ANION GAP 10 (8-16); BLOOD UREA NITROGEN 18 MG/DL (7-18); CALCIUM 9.1 MG/DL (8.5-10.1); CHLORIDE 103 MMOL/L (99-107); CHOLESTEROL 254 MG/DL (0-200); CREATININE 1.29 MG/DL (0.60-1.10); GLUCOSE 104 MG/DL (70-104); HDL CHOLESTEROL 42 MG/DL (35-60); LDL CHOLESTEROL 186 MG/DL (50-100); POTASSIUM 3.3 MMOL/L (3.5-5.1); SODIUM 140 MMOL/L (135-145); TOTAL CARBON DIOXIDE 26.7 MMOL/L (24-32); TRIGLYCERIDES 192 MG/DL (20-135); eGFR 58 ML/MIN
[2020-02-21] MEDS ORDERED: METO-395 PO (08:57)
[2020-02-21] MEDS ORDERED: FURO-150 PO (08:57)
[2020-02-21 11:00] VITALS: BP 135/92
--- NOTE | 2020-02-21 13:00 | NUR ---
Patient stable for discharge per MD orders. All discharge instructions reviewed with patient and all questions answered. New prescriptions sent to [facility]. Patient to to follow up with primary care provider in 1 week. PIV discontinued - cannula intact. Telemetry monitoring discontinued. All patient belongings packed up and sent with patient in private vehicle to home. Patient walked to [facility], accompanied by RN.
== END 2020-02-21 12:59 | disposition home or self-care (01) | DRG 293 ==
LOC: ER 08:30 → ED HOLD 10:28 → EDBEDREQ 20:21 → PCU 3S 21:57
PROVIDERS: ADMIT Internal Medicine; ATTEND Internal Medicine
DX: I11.0 Hypertensive heart disease with heart failure (principal); I50.33 Acute on chronic diastolic (congestive) heart failure; E78.5 Hyperlipidemia, unspecified; I10 Essential (primary) hypertension; I25.10 Atherosclerotic heart disease of native coronary artery without angina pectoris; I25.2 Old myocardial infarction; Z79.02 Long term (current) use of antithrombotics/antiplatelets; Z79.82 Long term (current) use of aspirin; Z79.899 Other long term (current) drug therapy; Z87.442 Personal history of urinary calculi; Z95.1 Presence of aortocoronary bypass graft
CPT/HCPCS: 36415; 71045; 71275; 80048; 80053; 80061; 83735; 83880; 84484; 85025; 85610; 85730; 87081; 93005; 96372; 99285; G0378; J1650; Q9967

== ENCOUNTER 2020-08-25 09:17 | Inpatient (IN) | payer BC ==
[~2020-08-25] VITALS: Ht 177.8 cm; Wt 97.9 kg
[~2020-08-25 09:17] MED LIST changes: -AZIL1TAB2 PO; +CLOP75TA15 PO; -CLOP75TA35 PO; +FURO-150 PO; -HYDR-4353 PO; +LOSA100T57 PO; +METO-395 PO; -METO25TA6 PO; +aspirin 81mg tab.chew ONE; +heparin, porcine-25,000 units/D5-250ml premix IV ONE; +normal saline 1000ML IV soln ONE
[2020-08-25] MEDS ORDERED: heparin 10,000 units/1 ML INJ IV ONE ×2 (09:45→09:50)
[2020-08-25] MEDS ORDERED: heparin 10,000 units/1 ML INJ IV PRN (09:45)
[2020-08-25] MEDS: heparin 25,000 UNIT/250ml bag 250 ML IV SCH ×2 (09:51→15:58)
[2020-08-25] MEDS ORDERED: morphine 4 MG/ML inj SYRINge IV ONE (09:55)
[2020-08-25] MEDS ORDERED: ondansetron/PF 4mg/2ml inj IV ONE (09:55)
[2020-08-25 10:02] LABS: PARTIAL THROMBOPLASTIN TIME 25 SECONDS (22-32)
[2020-08-25 10:07] LABS: ALANINE AMINOTRANSFERASE 42 U/L (12-78); ALBUMIN 4.2 G/DL (3.4-5.0); ALBUMIN/GLOBULIN RATIO 1.2 (1.1-1.5); ALKALINE PHOSPHATASE 80 IU/L (46-116); ANION GAP 10 (8-16); ASPARTATE AMINO TRANSFERASE 24 U/L (10-37); BILIRUBIN,TOTAL 2.1 MG/DL (0.1-1.0); BLOOD UREA NITROGEN 21 MG/DL (7-18); BUN/CREATININE RATIO 15.7 (5.4-32.0); CHLORIDE 103 MMOL/L (99-107); CREATININE 1.34 MG/DL (0.60-1.10); GLUCOSE 127 MG/DL (70-104); SODIUM 140 MMOL/L (135-145); TOTAL CARBON DIOXIDE 27.4 MMOL/L (24-32); TOTAL PROTEIN 7.8 G/DL (6.4-8.2); eGFR 56 ML/MIN
[2020-08-25] MEDS ORDERED: fentaNYL/PF 50MCG/1 ML 2ML syringe ONE (10:07)
[2020-08-25] MEDS ORDERED: heparin 1,000unit/ml 10ml vial 10 ML ONE (10:07)
[2020-08-25] MEDS ORDERED: iohexol 350 MG/1 ML 200ml bottle ONE (10:07)
[2020-08-25] MEDS ORDERED: midazolam 1 mg/ML 2ml injection ONE (10:07)
[2020-08-25] MEDS ORDERED: LIDOcaine 1% (10mg/ml)w/preservative injection 20ml MDV ONE (10:07)
[2020-08-25 10:10] LABS: BASOPHILS # (AUTO) 0.1 X10'3 (0-0.2); BASOPHILS % (AUTO) 0.9 % (0-1); EOSINOPHILS # (AUTO) 0.3 X10'3 (0-0.9); EOSINOPHILS % (AUTO) 3.9 % (0-6); HEMATOCRIT 49.9 % (42.0-52.0); HEMOGLOBIN 17.1 g/dl (14.0-17.9); LYMPHOCYTES # (AUTO) 2.6 X10'3 (1.1-4.8); LYMPHOCYTES % (AUTO) 37.4 % (21-51); MEAN CORPUSCULAR HEMOGLOBIN 30.1 PG (27.0-31.0); MEAN CORPUSCULAR HGB CONC 34.3 g/dL (33.0-36.5); MEAN PLATELET VOLUME 8.9 FL (7.4-10.4); MONOCYTES # (AUTO) 0.8 X10'3 (0-0.9); MONOCYTES % (AUTO) 10.9 % (2-12); NEUTROPHILS # (AUTO) 3.2 X10'3 (1.8-7.7); NEUTROPHILS % (AUTO) 46.9 % (42-75); PLATELET COUNT 226 X10'3 (140-440); RED BLOOD COUNT 5.67 X10'6 (4.70-6.10); RED CELL DISTRIBUTION WIDTH 13.5 % (11.5-14.5); WHITE BLOOD COUNT 6.9 X10'3 (4.5-11.0)
[2020-08-25 10:16] LABS: MAGNESIUM 1.9 MG/DL (1.5-2.4)
[2020-08-25] MEDS ORDERED: iohexol 350MG/ML 100ml bottle IV ONE (10:39)
[2020-08-25] MEDS ORDERED: potassium Cl 20 mEq SR tablet PO STA ×2 (12:11→22:35)
[2020-08-25] MEDS ORDERED: acetaminophen 325mg tablet PO PRN (12:50)
[2020-08-25] MEDS ORDERED: morphine 2 MG/ML inj. syringe IV PRN (12:50)
[2020-08-25] MEDS ORDERED: potassium Cl 20 mEq SR tablet PO PRN (12:50)
[2020-08-25] MEDS ORDERED: potassium Cl 40MEQ/1/2NS 520ml 520 ML IV PRN ×2 (12:50)
[2020-08-25] MEDS ORDERED: magnesium Cl slow-release 64mg tablet PO PRN (12:50)
[2020-08-25] MEDS ORDERED: ondansetron/PF 4mg/2ml inj IV PRN (12:50)
[2020-08-25] MEDS ORDERED: magnesium 2GM in 50ml NS 50 ML IV PRN (12:50)
[2020-08-25] MEDS ORDERED: PERFLUTREN PROTEIN-A MICROSPHR (Optison) 0.22 MG/ML 3ML VIAL IV ONE (12:50)
[2020-08-25] MEDS ORDERED: magnesium 4gm in 100ml NS 100 ML IV PRN (12:50)
[2020-08-25] MEDS ORDERED: CHLO25TA10 PO (13:06)
[2020-08-25] MEDS ORDERED: EVOL140P3 SQ (13:06)
[2020-08-25] MEDS ORDERED: AZIL1TAB2 PO (13:06)
[2020-08-25] MEDS ORDERED: METO-384 PO (13:06)
[2020-08-25] MEDS ORDERED: PERFLUTREN PROTEIN-A MICROSPHR (Optison) 0.22 MG/ML 3ML VIAL IV PRN (13:25)
[2020-08-25] MEDS ORDERED: ERGO400C PO (13:50)
[2020-08-25 15:19] VITALS: BP 159/101
[2020-08-25] MEDS ORDERED: normal saline 1000ml 1,000 ML IV SCH (16:35)
--- NOTE | 2020-08-25 16:37 | NUR ---
NOTIFIED DR. IBANEZ THAT PT TROP 1.53. PT WAS ALREADY STARTED ON HEPARIN DRIP PER PROTOCOL. PT WILL BE NPO AT MIDNIGHT. PT MADE AWARE.
[2020-08-25 19:00] VITALS: BP 163/92
[2020-08-25] MEDS: K and/or MAG REPLACEMENT MC SCH (20:00)
[2020-08-25] MEDS: losartan 50mg tablet PO SCH (20:30)
[2020-08-25] MEDS: metoprolol tartrate 25mg tablet PO SCH (22:35)
[2020-08-25] MEDS: pantoprazole 40mg Tablet.DR PO SCH (23:42)
[2020-08-26] VITALS (14 sets, daily range): BP systolic 144–172; BP diastolic 84–110
[2020-08-26] MEDS: aspirin 81mg tab.chew PO SCH (07:56)
[2020-08-26] MEDS ORDERED: clopidogrel 75mg tablet PO SCH (08:00)
[2020-08-26] MEDS: K and/or MAG REPLACEMENT MC SCH ×2 (08:00→20:18)
[2020-08-26 08:13] LABS: ALBUMIN 3.4 G/DL (3.4-5.0); ANION GAP 10 (8-16); BLOOD UREA NITROGEN 17 MG/DL (7-18); BUN/CREATININE RATIO 14.5 (5.4-32.0); CALCIUM 8.3 MG/DL (8.5-10.1); CHLORIDE 106 MMOL/L (99-107); CREATININE 1.17 MG/DL (0.60-1.10); GLUCOSE 105 MG/DL (70-104); MAGNESIUM 1.7 MG/DL (1.5-2.4); POTASSIUM 3.4 MMOL/L (3.5-5.1); SODIUM 142 MMOL/L (135-145); TOTAL CARBON DIOXIDE 26.5 MMOL/L (24-32); eGFR 65 ML/MIN
[2020-08-26] MEDS ORDERED: heparin 1,000unit/ml 10ml vial 10 ML ONE (08:14)
[2020-08-26] MEDS ORDERED: LIDOcaine 1% (10mg/ml)w/preservative injection 20ml MDV ONE (08:14)
[2020-08-26] MEDS ORDERED: heparin 1,000 UNITS/NS 500ml 500 ML ONE (08:14)
[2020-08-26] MEDS ORDERED: midazolam 1 mg/ML 2ml injection ONE ×2 (08:14→08:43)
[2020-08-26] MEDS ORDERED: iohexol 350 MG/1 ML 200ml bottle ONE (08:14)
[2020-08-26] MEDS ORDERED: fentaNYL/PF 50MCG/1 ML 2ML syringe ONE (08:14)
[2020-08-26 08:21] LABS: BASOPHILS % (AUTO) 0.6 % (0-1); EOSINOPHILS # (AUTO) 0.2 X10'3 (0-0.9); EOSINOPHILS % (AUTO) 3.6 % (0-6); HEMATOCRIT 45.7 % (42.0-52.0); HEMOGLOBIN 15.6 g/dl (14.0-17.9); LYMPHOCYTES # (AUTO) 1.4 X10'3 (1.1-4.8); LYMPHOCYTES % (AUTO) 24.5 % (21-51); MEAN CORPUSCULAR HEMOGLOBIN 30.3 PG (27.0-31.0); MEAN CORPUSCULAR HGB CONC 34.2 g/dL (33.0-36.5); MEAN CORPUSCULAR VOLUME 88.5 FL (78-98); MEAN PLATELET VOLUME 9.3 FL (7.4-10.4); MONOCYTES # (AUTO) 0.6 X10'3 (0-0.9); NEUTROPHILS # (AUTO) 3.4 X10'3 (1.8-7.7); NEUTROPHILS % (AUTO) 61.3 % (42-75); PLATELET COUNT 176 X10'3 (140-440); RED BLOOD COUNT 5.16 X10'6 (4.70-6.10); RED CELL DISTRIBUTION WIDTH 13.4 % (11.5-14.5); WHITE BLOOD COUNT 5.6 X10'3 (4.5-11.0)
[2020-08-26] MEDS: metoprolol tartrate 25mg tablet PO SCH ×2 (09:55→20:19)
[2020-08-26] MEDS: pantoprazole 40mg Tablet.DR PO SCH ×2 (09:55→20:17)
[2020-08-26] MEDS: normal saline 1000ml 1,000 ML IV SCH ×2 (09:56→23:10)
[2020-08-26] MEDS: potassium Cl 20 mEq SR tablet PO PRN ×3 (09:56→20:17)
--- NOTE | 2020-08-26 10:43 | NUR ---
Spoke with Pharmacist regarding the order for Crestor 40mg, unable to order Crestor instructed to order substitute of Lipitor of 80mg.
[2020-08-26] MEDS: atorvastatin 20mg tablet PO SCH (11:00)
[2020-08-26] MEDS: losartan 50mg tablet PO SCH (11:00)
[2020-08-26] MEDS: heparin 25,000 UNIT/250ml bag 250 ML IV SCH (15:44)
--- NOTE | 2020-08-26 18:05 | NUR ---
Patient in room PCU 3014. I have received report from Winsome PATIÑO and had the opportunity to ask questions and assume patient care.
--- NOTE | 2020-08-26 18:14 | NUR ---
Problems reprioritized. Patient report given, questions answered & plan of care reviewed with Rhonda PATIÑO.
[2020-08-26] MEDS ORDERED: hydrALAZINE 20mg/ml inj. IV PRN (19:20)
[2020-08-26] MEDS ORDERED: non-formulary drug (Losartan Potassium 1 TAB) PO SCH (21:00)
[2020-08-26] MEDS: heparin 10,000 units/1 ML INJ IV PRN (23:10)
--- NOTE | 2020-08-27 01:42 | NUR ---
Paged: PAGER ID: [phone] MESSAGE: Marko Campbell. #[phone]. Pt increased BP. Hydralazine prn given 10mg. Pt expressed feeling lightheaded, BP taken 177/130, Stat EKG done( no signif change).Pt does not want more Hydralazine. What would you like me to do? Symone [address] Murphy via telephone, per Metoprolol 25mg PO now ordered. Will continue to monitor patient per hospital policy.
[2020-08-27] MEDS ORDERED: metoprolol tartrate 25mg tablet PO ONE (01:50)
[2020-08-27 02:00] VITALS: BP 157/88
--- NOTE | 2020-08-27 05:17 | NUR ---
Orientee documentation: I have reviewed and agree with all interventions, assessments performed and documented by Naa PATIÑO. Orientee Medication Administration: For this medication-pass time frame, all medication were reviewed, dispensed, administered and documented per hospital policy by Naa PATIÑO.
--- NOTE | 2020-08-27 06:21 | NUR ---
Problems reprioritized. Patient report given, questions answered & plan of care reviewed with Winsome PATIÑO.
[2020-08-27 06:37] VITALS: BP 148/95
[2020-08-27 07:11] LABS: BASOPHILS % (AUTO) 0.8 % (0-1); EOSINOPHILS # (AUTO) 0.2 X10'3 (0-0.9); EOSINOPHILS % (AUTO) 2.5 % (0-6); HEMATOCRIT 46.9 % (42.0-52.0); HEMOGLOBIN 16.4 g/dl (14.0-17.9); LYMPHOCYTES # (AUTO) 1.2 X10'3 (1.1-4.8); LYMPHOCYTES % (AUTO) 18.9 % (21-51); MEAN CORPUSCULAR HEMOGLOBIN 30.5 PG (27.0-31.0); MEAN CORPUSCULAR HGB CONC 34.9 g/dL (33.0-36.5); MEAN CORPUSCULAR VOLUME 87.5 FL (78-98); MEAN PLATELET VOLUME 8.9 FL (7.4-10.4); MONOCYTES # (AUTO) 0.5 X10'3 (0-0.9); MONOCYTES % (AUTO) 8.1 % (2-12); NEUTROPHILS # (AUTO) 4.4 X10'3 (1.8-7.7); NEUTROPHILS % (AUTO) 69.7 % (42-75); PLATELET COUNT 189 X10'3 (140-440); RED BLOOD COUNT 5.36 X10'6 (4.70-6.10); RED CELL DISTRIBUTION WIDTH 13.5 % (11.5-14.5); WHITE BLOOD COUNT 6.3 X10'3 (4.5-11.0)
[2020-08-27 07:16] LABS: ALBUMIN 3.7 G/DL (3.4-5.0); ANION GAP 11 (8-16); BLOOD UREA NITROGEN 15 MG/DL (7-18); BUN/CREATININE RATIO 14.3 (5.4-32.0); CALCIUM 8.9 MG/DL (8.5-10.1); CHLORIDE 105 MMOL/L (99-107); CREATININE 1.05 MG/DL (0.60-1.10); GLUCOSE 118 MG/DL (70-104); MAGNESIUM 1.7 MG/DL (1.5-2.4); POTASSIUM 3.4 MMOL/L (3.5-5.1); SODIUM 140 MMOL/L (135-145); eGFR 74 ML/MIN
[2020-08-27] MEDS: K and/or MAG REPLACEMENT MC SCH ×2 (08:00→20:00)
[2020-08-27] MEDS ORDERED: MESSAGE TO NURSING PO ONE ×5 (08:20→10:00)
[2020-08-27] MEDS: aspirin 81mg tab.chew PO SCH (08:40)
[2020-08-27] MEDS: pantoprazole 40mg Tablet.DR PO SCH ×2 (08:40→20:24)
[2020-08-27] MEDS: atorvastatin 20mg tablet PO SCH (08:41)
[2020-08-27] MEDS: metoprolol tartrate 25mg tablet PO SCH ×2 (08:42→20:24)
[2020-08-27] MEDS: losartan 50mg tablet PO SCH (08:42)
[2020-08-27] MEDS: potassium Cl 20 mEq SR tablet PO PRN ×2 (10:47→15:10)
[2020-08-27 11:00] VITALS: BP 151/94
[2020-08-27] MEDS: heparin 25,000 UNIT/250ml bag 250 ML IV SCH (12:57)
[2020-08-27 13:44] LABS: ABG BASE EXCESS 0.2 mmol/L (-2.0-2.0); ABG HCO3 23.4 mmol/L (22.0-26.0); ABG OXYGEN SATURATION 96.5 % (94-97); ABG PCO2 (T) 34.3 mmHg (35.0-48.0); ALLEN'S TEST POSITIVE; FCOHb 0.3 % (0.0-3.9); FMetHb 0.4 % (0.0-1.5); FO2Hb 95.8 % (94-97); TOTAL HEMOGLOBIN 16.9 G/dl (14.0-18.0)
[2020-08-27 15:00] VITALS: BP 144/101
[2020-08-27 18:00] VITALS: BP 153/104
--- NOTE | 2020-08-27 18:15 | NUR ---
Patient in room PCU 3021. I have received bedside report from KAYLYN Schumacher and had the opportunity to ask questions and assume patient care.
[2020-08-27] MEDS ORDERED: amLODIPine 5mg tablet PO SCH (18:50)
[2020-08-27 22:00] VITALS: BP 162/94
[2020-08-28] MEDS: potassium Cl 20 mEq SR tablet PO PRN (00:24)
[2020-08-28 02:00] VITALS: BP 134/87
[2020-08-28 04:11] LABS: BASOPHILS % (AUTO) 0.4 % (0-1); EOSINOPHILS # (AUTO) 0.2 X10'3 (0-0.9); EOSINOPHILS % (AUTO) 3.1 % (0-6); HEMATOCRIT 47.8 % (42.0-52.0); HEMOGLOBIN 16.6 g/dl (14.0-17.9); LYMPHOCYTES # (AUTO) 1.5 X10'3 (1.1-4.8); LYMPHOCYTES % (AUTO) 22.6 % (21-51); MEAN CORPUSCULAR HEMOGLOBIN 30.6 PG (27.0-31.0); MEAN CORPUSCULAR HGB CONC 34.8 g/dL (33.0-36.5); MEAN PLATELET VOLUME 9.1 FL (7.4-10.4); MONOCYTES # (AUTO) 0.6 X10'3 (0-0.9); MONOCYTES % (AUTO) 9.6 % (2-12); NEUTROPHILS # (AUTO) 4.2 X10'3 (1.8-7.7); NEUTROPHILS % (AUTO) 64.3 % (42-75); PLATELET COUNT 189 X10'3 (140-440); RED BLOOD COUNT 5.43 X10'6 (4.70-6.10); RED CELL DISTRIBUTION WIDTH 13.5 % (11.5-14.5); WHITE BLOOD COUNT 6.6 X10'3 (4.5-11.0)
[2020-08-28 04:20] LABS: ALBUMIN 3.8 G/DL (3.4-5.0); ANION GAP 10 (8-16); BLOOD UREA NITROGEN 17 MG/DL (7-18); BUN/CREATININE RATIO 13.8 (5.4-32.0); CALCIUM 9.1 MG/DL (8.5-10.1); CHLORIDE 105 MMOL/L (99-107); CHOL/HDL RATIO 5.9 (0.00-4.99); CHOLESTEROL 278 MG/DL (0-200); CREATININE 1.23 MG/DL (0.60-1.10); GLUCOSE 111 MG/DL (70-104); HDL CHOLESTEROL 47 MG/DL (35-60); LDL CHOLESTEROL 195 MG/DL (50-100); MAGNESIUM 1.6 MG/DL (1.5-2.4); POTASSIUM 3.4 MMOL/L (3.5-5.1); SODIUM 139 MMOL/L (135-145); TOTAL CARBON DIOXIDE 24.3 MMOL/L (24-32); TRIGLYCERIDES 148 MG/DL (20-135); eGFR 62 ML/MIN
--- NOTE | 2020-08-28 06:31 | NUR ---
Problems reprioritized. Patient bedside report given, questions answered & plan of care reviewed with KAYLYN Espinoza.
[2020-08-28] MEDS: heparin 25,000 UNIT/250ml bag 250 ML IV SCH (06:45)
[2020-08-28 07:00] VITALS: BP 130/80
[2020-08-28 07:04] LABS: CLARITY,URINE CLEAR (Clear); COLOR,URINE YELLOW (Yellow); GLUCOSE, URINE NEGATIVE (Neg); KETONES,URINE NEGATIVE (Neg); LEUKOCYTE ESTERASE ,URINE NEGATIVE (Neg); NITRITES, URINE NEGATIVE (Neg); OCCULT BLOOD,URINE NEGATIVE (Neg); PROTEIN,URINE NEGATIVE (Neg); UROBILINOGEN,URINE 0.2 E.U/dL (0.2-1.0)
[2020-08-28 07:11] LABS: UA COLLECTION TYPE NON-SPECIFIED
[2020-08-28] MEDS: hyDRALAzine 10mg tablet PO SCH ×2 (08:00)
[2020-08-28] MEDS: losartan 50mg tablet PO SCH (08:34)
[2020-08-28] MEDS: metoprolol tartrate 25mg tablet PO SCH ×2 (08:35→19:30)
[2020-08-28] MEDS: atorvastatin 20mg tablet PO SCH (08:35)
[2020-08-28] MEDS: pantoprazole 40mg Tablet.DR PO SCH ×2 (08:35→19:31)
[2020-08-28] MEDS: aspirin 81mg tab.chew PO SCH (08:35)
[2020-08-28] MEDS: K and/or MAG REPLACEMENT MC SCH ×2 (08:48→20:00)
[2020-08-28] MEDS ORDERED: POTASSIUM BICARB 20meq eff tab 20 MEQ TABLET.EFF PO PRN ×2 (08:52→08:53)
--- NOTE | 2020-08-28 10:18 | NUR ---
Per Dr Tan's orders, give 1 2G bag IV of Mag, and give 80meq PO of k+ on 08/28.
[2020-08-28 11:00] VITALS: BP 144/90
[2020-08-28 18:00] VITALS: BP 150/91
--- NOTE | 2020-08-28 18:32 | NUR ---
Problems reprioritized. Patient report given, questions answered & plan of care reviewed with KAYLYN Whitaker. Pt sitting up eating dinner. Family at bedside. All pt needs met at this time.
--- NOTE | 2020-08-28 18:51 | NUR ---
Patient in room PCU 3021. I have received bedside report from KAYLYN Espinoza and had the opportunity to ask questions and assume patient care.
[2020-08-28 22:00] VITALS: BP 150/91
[2020-08-29] MEDS: heparin 25,000 UNIT/250ml bag 250 ML IV SCH (01:11)
[2020-08-29 02:00] VITALS: BP 123/82
[2020-08-29 04:17] LABS: BASOPHILS % (AUTO) 0.7 % (0-1); EOSINOPHILS # (AUTO) 0.2 X10'3 (0-0.9); EOSINOPHILS % (AUTO) 3.3 % (0-6); HEMATOCRIT 47.1 % (42.0-52.0); HEMOGLOBIN 16.2 g/dl (14.0-17.9); LYMPHOCYTES # (AUTO) 1.6 X10'3 (1.1-4.8); LYMPHOCYTES % (AUTO) 23.8 % (21-51); MEAN CORPUSCULAR HEMOGLOBIN 30.5 PG (27.0-31.0); MEAN CORPUSCULAR HGB CONC 34.4 g/dL (33.0-36.5); MEAN CORPUSCULAR VOLUME 88.4 FL (78-98); MEAN PLATELET VOLUME 9.3 FL (7.4-10.4); MONOCYTES # (AUTO) 0.6 X10'3 (0-0.9); MONOCYTES % (AUTO) 8.8 % (2-12); NEUTROPHILS # (AUTO) 4.3 X10'3 (1.8-7.7); NEUTROPHILS % (AUTO) 63.4 % (42-75); PLATELET COUNT 196 X10'3 (140-440); RED BLOOD COUNT 5.33 X10'6 (4.70-6.10); RED CELL DISTRIBUTION WIDTH 13.2 % (11.5-14.5); WHITE BLOOD COUNT 6.8 X10'3 (4.5-11.0)
[2020-08-29 04:27] LABS: ALBUMIN 3.7 G/DL (3.4-5.0); ANION GAP 11 (8-16); BLOOD UREA NITROGEN 20 MG/DL (7-18); BUN/CREATININE RATIO 16.7 (5.4-32.0); CALCIUM 9.1 MG/DL (8.5-10.1); CHLORIDE 104 MMOL/L (99-107); GLUCOSE 136 MG/DL (70-104); MAGNESIUM 1.8 MG/DL (1.5-2.4); POTASSIUM 3.6 MMOL/L (3.5-5.1); SODIUM 139 MMOL/L (135-145); TOTAL CARBON DIOXIDE 23.6 MMOL/L (24-32); eGFR 63 ML/MIN
[2020-08-29 06:00] VITALS: BP 147/86
--- NOTE | 2020-08-29 06:30 | NUR ---
Patient in room PCU 3021. I have received report from Julianne PATIÑO and had the opportunity to ask questions and assume patient care.
--- NOTE | 2020-08-29 06:36 | NUR ---
Problems reprioritized. Patient bedside report given, questions answered & plan of care reviewed with KAYLYN Walker and KAYLYN Gonzalez.
[2020-08-29] MEDS: atorvastatin 20mg tablet PO SCH (07:52)
[2020-08-29] MEDS: aspirin 81mg tab.chew PO SCH (07:52)
[2020-08-29] MEDS: metoprolol tartrate 25mg tablet PO SCH ×2 (07:53→19:25)
[2020-08-29] MEDS: pantoprazole 40mg Tablet.DR PO SCH ×2 (07:54→19:25)
[2020-08-29] MEDS: losartan 50mg tablet PO SCH (07:57)
[2020-08-29] MEDS: K and/or MAG REPLACEMENT MC SCH ×2 (08:00→19:28)
[2020-08-29] MEDS: heparin 10,000 units/1 ML INJ IV PRN (08:03)
--- NOTE | 2020-08-29 09:25 | NUR ---
Initial: Pt admit for NSTEMI. 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 Lipid panel was obtained, noted TG, CHOL, and LDL are all elevated. Pt would benefit from heart healthy and s/p CABG nutrition therapy educations once stable post-op. Pt on a heart healthy diet documented with average 75-100% PO intake. LBM 08/28. No nutrition intervention implemented at this time. Will continue to follow. Recommendations: 1) Continue heart healthy diet 2) Monitor need for additional protein 3) Bowel care per rx 4) Weekly scaled weights 5) Heart healthy and s/p CABG nutrition therapy educations once stable post-op Addendum: 08/29/20 at [address] Amended: Links added.
[2020-08-29 11:00] VITALS: BP 147/85
[2020-08-29] MEDS ORDERED: Insulin Reg/NS 100units/100mL 100 ML IV SCH (13:45)
[2020-08-29] MEDS ORDERED: insulin glargine (Lantus) pen - multi-dose SQ PRN (13:45)
[2020-08-29] MEDS ORDERED: cefazolin/dext.iso 2gm/50ml 50 ML IV ONE (13:45)
[2020-08-29] MEDS ORDERED: dextrose 50%-water 50ml dispensing syringe IV PRN ×2 (13:45→13:55)
[2020-08-29] MEDS ORDERED: gabapentin 400mg capsule PO ONE (13:45)
[2020-08-29 15:00] VITALS: BP 155/95
--- NOTE | 2020-08-29 18:20 | NUR ---
Problems reprioritized. Patient report given, questions answered & plan of care reviewed with Fatmata PATIÑO.
--- NOTE | 2020-08-29 19:09 | NUR ---
Patient in room PCU 3021. I have received report from Aaron PATIÑO and had the opportunity to ask questions and assume patient care.
[2020-08-30] VITALS (7 sets, daily range): BP systolic 115–152; BP diastolic 61–89
[2020-08-30] MEDS ORDERED: Insulin Reg/NS 100units/100mL 100 ML IV SCH (05:30)
[2020-08-30] MEDS ORDERED: gabapentin 400mg capsule PO ONE (05:30)
[2020-08-30] MEDS ORDERED: vancomycin/NS 1 GM ADD-VANTAGE 250 ML IV ONE (05:30)
[2020-08-30] MEDS ORDERED: cefazolin/dext.iso 2gm/50ml 50 ML IV ONE (05:30)
--- NOTE | 2020-08-30 06:00 | NUR ---
Patient in room PCU 3021. I have received report from TAZ PATIÑO and had the opportunity to ask questions and assume patient care.
[2020-08-30 06:06] LABS: BASOPHILS % (AUTO) 0.4 % (0-1); EOSINOPHILS # (AUTO) 0.3 X10'3 (0-0.9); EOSINOPHILS % (AUTO) 2.8 % (0-6); HEMATOCRIT 48.9 % (42.0-52.0); LYMPHOCYTES # (AUTO) 1.9 X10'3 (1.1-4.8); LYMPHOCYTES % (AUTO) 20.6 % (21-51); MEAN CORPUSCULAR HEMOGLOBIN 30.6 PG (27.0-31.0); MEAN CORPUSCULAR HGB CONC 34.8 g/dL (33.0-36.5); MEAN CORPUSCULAR VOLUME 87.9 FL (78-98); MEAN PLATELET VOLUME 9.1 FL (7.4-10.4); MONOCYTES # (AUTO) 0.7 X10'3 (0-0.9); MONOCYTES % (AUTO) 8.3 % (2-12); NEUTROPHILS # (AUTO) 6.1 X10'3 (1.8-7.7); NEUTROPHILS % (AUTO) 67.9 % (42-75); PLATELET COUNT 203 X10'3 (140-440); RED BLOOD COUNT 5.56 X10'6 (4.70-6.10); RED CELL DISTRIBUTION WIDTH 13.5 % (11.5-14.5)
[2020-08-30 06:22] LABS: ALBUMIN 3.8 G/DL (3.4-5.0); ANION GAP 11 (8-16); BLOOD UREA NITROGEN 22 MG/DL (7-18); BUN/CREATININE RATIO 19.1 (5.4-32.0); CHLORIDE 105 MMOL/L (99-107); CREATININE 1.15 MG/DL (0.60-1.10); GLUCOSE 109 MG/DL (70-104); MAGNESIUM 1.8 MG/DL (1.5-2.4); POTASSIUM 3.8 MMOL/L (3.5-5.1); SODIUM 139 MMOL/L (135-145); TOTAL CARBON DIOXIDE 23.2 MMOL/L (24-32); eGFR 67 ML/MIN
--- NOTE | 2020-08-30 06:26 | NUR ---
Problems reprioritized. Patient report given, questions answered & plan of care reviewed with Shavon RN.
[2020-08-30] MEDS: K and/or MAG REPLACEMENT MC SCH ×2 (08:00→19:42)
[2020-08-30] MEDS: losartan 50mg tablet PO SCH (08:58)
[2020-08-30] MEDS: pantoprazole 40mg Tablet.DR PO SCH ×2 (08:58→20:12)
[2020-08-30] MEDS: aspirin 81mg tab.chew PO SCH (08:58)
[2020-08-30] MEDS: atorvastatin 20mg tablet PO SCH (08:59)
[2020-08-30] MEDS: metoprolol tartrate 25mg tablet PO SCH ×2 (09:01→20:12)
[2020-08-30] MEDS: normal saline 1000ml 1,000 ML IV SCH ×2 (09:01→20:12)
[2020-08-30] MEDS ORDERED: midazolam 1 mg/ML 2ml injection ONE ×5 (16:17→18:24)
[2020-08-30] MEDS ORDERED: LIDOcaine 1% (10mg/ml)w/preservative injection 20ml MDV ONE (16:17)
[2020-08-30] MEDS ORDERED: fentaNYL/PF 50MCG/1 ML 2ML syringe ONE (16:17)
[2020-08-30] MEDS ORDERED: iohexol 350 MG/1 ML 200ml bottle ONE (16:17)
[2020-08-30] MEDS ORDERED: heparin 1,000unit/ml 10ml vial 10 ML ONE ×2 (16:17→17:41)
[2020-08-30] MEDS ORDERED: phenylephrine 10mg/ml inj. ONE (17:01)
[2020-08-30] MEDS ORDERED: DOPamine 400mg/D5W 250ml 250 ML IV ONE (17:02)
[2020-08-30] MEDS ORDERED: tirofiban 5mg in NS 100mL 100 ML IV ONE (17:31)
[2020-08-30] MEDS ORDERED: iohexol 350MG/ML 100ml bottle IV ONE (17:36)
[2020-08-30] MEDS ORDERED: heparin 1,000 UNITS/NS 500ml 500 ML ONE (18:13)
[2020-08-30] MEDS ORDERED: iohexol 350 MG/ML 50ML vial IV ONE (18:13)
[2020-08-30] MEDS ORDERED: ticagrelor 90mg tablet ONE (18:27)
[2020-08-31] VITALS: BP 132/80
[2020-08-31 02:00] VITALS: BP 125/75
[2020-08-31 06:00] VITALS: BP 127/70
--- NOTE | 2020-08-31 06:34 | NUR ---
Patient in room PCU 3021. I have received report from KAYLYN Prescott and had the opportunity to ask questions and assume patient care.
[2020-08-31] MEDS: atorvastatin 20mg tablet PO SCH (07:32)
[2020-08-31] MEDS: pantoprazole 40mg Tablet.DR PO SCH (07:32)
[2020-08-31] MEDS: aspirin 81mg tab.chew PO SCH (07:34)
[2020-08-31] MEDS: losartan 50mg tablet PO SCH (07:34)
[2020-08-31 07:35] VITALS: BP_SYST 127
[2020-08-31] MEDS: metoprolol tartrate 25mg tablet PO SCH (07:35)
[2020-08-31 07:46] LABS: ALBUMIN 3.5 G/DL (3.4-5.0); ANION GAP 11 (8-16); BLOOD UREA NITROGEN 20 MG/DL (7-18); BUN/CREATININE RATIO 17.4 (5.4-32.0); CALCIUM 8.5 MG/DL (8.5-10.1); CHLORIDE 108 MMOL/L (99-107); CREATININE 1.15 MG/DL (0.60-1.10); GLUCOSE 102 MG/DL (70-104); MAGNESIUM 1.7 MG/DL (1.5-2.4); POTASSIUM 3.6 MMOL/L (3.5-5.1); SODIUM 141 MMOL/L (135-145); TOTAL CARBON DIOXIDE 22.2 MMOL/L (24-32); eGFR 67 ML/MIN
[2020-08-31] MEDS: K and/or MAG REPLACEMENT MC SCH (08:00)
[2020-08-31] MEDS ORDERED: ticagrelor 90mg tablet PO SCH (08:00)
[2020-08-31] MEDS ORDERED: aspirin 81mg tab.chew PO SCH (08:30)
[2020-08-31] MEDS ORDERED: LOP25T PO (08:43)
[2020-08-31] MEDS ORDERED: PANT-47 PO (08:43)
[2020-08-31] MEDS ORDERED: TICA90TA PO (08:43)
[2020-08-31] MEDS ORDERED: ATOR20TA66 PO (08:43)
--- NOTE | 2020-08-31 12:10 | NUR ---
Pt was stable, per md orders. IV removed with cannula intact. residential monitor discontinued. His medications sent to pharmacy[facility]. I gave him all discharge instructions and educating him regarding his medical conditions and let him to ask me all questions he needs to ask me. All belongings gathered with pt and his and I walked down with them to lobby. He was seen leaving the hospital with his in a private vehicle.
--- NOTE | 2020-08-31 12:20 | NUR ---
Preceptee documentation: I have reviewed and agree with all interventions, assessments performed and documented by KAYLYN Gonzalez. Precepetee, Medication Administration: For this medication-pass time frame, all medication were reviewed, dispensed, administered and documented per hospital policy by KAYLYN Gonzalez.
== END 2020-08-31 10:37 | disposition home or self-care (01) | DRG 246 ==
LOC: ER 09:17 → ED HOLD 12:48 → PCU 3S 15:05
PROVIDERS: ADMIT Internal Medicine; ATTEND Internal Medicine
PROC: 4A023N7 Measurement of Cardiac Sampling and Pressure, Left Heart, Percutaneous Approach (ICD-10-PCS; principal; 2020-08-26)
PROC: B2111ZZ Fluoroscopy of Multiple Coronary Arteries using Low Osmolar Contrast (ICD-10-PCS; 2020-08-26)
PROC: B2151ZZ Fluoroscopy of Left Heart using Low Osmolar Contrast (ICD-10-PCS; 2020-08-26)
PROC: B41F1ZZ Fluoroscopy of Right Lower Extremity Arteries using Low Osmolar Contrast (ICD-10-PCS; 2020-08-26)
PROC: B3121ZZ Fluoroscopy of Left Subclavian Artery using Low Osmolar Contrast (ICD-10-PCS; 2020-08-26)
PROC: 027036Z Dilation of Coronary Artery, One Artery with Three Drug-eluting Intraluminal Devices, Percutaneous Approach (ICD-10-PCS; 2020-08-30)
PROC: B41F1ZZ Fluoroscopy of Right Lower Extremity Arteries using Low Osmolar Contrast (ICD-10-PCS; 2020-08-30)
DX: T82.855A Stenosis of coronary artery stent, initial encounter (principal); I50.43 Acute on chronic combined systolic (congestive) and diastolic (congestive) heart failure; I21.4 Non-ST elevation (NSTEMI) myocardial infarction; I25.810 Atherosclerosis of coronary artery bypass graft(s) without angina pectoris; E78.00 Pure hypercholesterolemia, unspecified; E78.5 Hyperlipidemia, unspecified; E87.6 Hypokalemia; I11.0 Hypertensive heart disease with heart failure; I25.2 Old myocardial infarction; Y83.1 Surgical operation with implant of artificial internal device as the cause of abnormal reaction of the patient, or of later complication, without mention of misadventure at the time of the procedure; Z79.02 Long term (current) use of antithrombotics/antiplatelets; Z79.82 Long term (current) use of aspirin; Z79.899 Other long term (current) drug therapy; Z87.442 Personal history of urinary calculi
CPT/HCPCS: 93306; 93454; 93459; 96375; 99285; C9600; 36415; 36600; 71045; 71046; 71275; 74174; 80048; 80053; 80061; 81003; 82803; 83036; 83735; 83880; 84484; 85018; 85025; 85347; 85576; 85610; 85730; 86870; 86885; 86900; 86901; 86902; 86905; 86922; 93005; 93880; 93971; 94010; 94760; 97161; 99152; 99153; A6258; C1725; C1751; C1760; C1769; C1874; C1892; C9601; G0378; J0360; J1265; J1644; J1815; J2001; J2250; J2270; J2370; J2405; J3010; J3246; J3475; J7030; J7040; Q9967

== ENCOUNTER 2020-09-25 10:32 | Day surgery (SDC) | payer BC ==
[2020-09-20 11:38] LABS: BASOPHILS % (AUTO) 0.7 % (0-1); EOSINOPHILS # (AUTO) 0.2 X10'3 (0-0.9); EOSINOPHILS % (AUTO) 3.3 % (0-6); HEMATOCRIT 46.7 % (42.0-52.0); LYMPHOCYTES # (AUTO) 1.2 X10'3 (1.1-4.8); LYMPHOCYTES % (AUTO) 23.1 % (21-51); MEAN CORPUSCULAR HEMOGLOBIN 30.4 PG (27.0-31.0); MEAN CORPUSCULAR HGB CONC 34.3 g/dL (33.0-36.5); MEAN CORPUSCULAR VOLUME 88.5 FL (78-98); MEAN PLATELET VOLUME 9.2 FL (7.4-10.4); MONOCYTES # (AUTO) 0.4 X10'3 (0-0.9); MONOCYTES % (AUTO) 7.4 % (2-12); NEUTROPHILS # (AUTO) 3.3 X10'3 (1.8-7.7); NEUTROPHILS % (AUTO) 65.5 % (42-75); PLATELET COUNT 209 X10'3 (140-440); RED BLOOD COUNT 5.28 X10'6 (4.70-6.10); RED CELL DISTRIBUTION WIDTH 12.9 % (11.5-14.5); WHITE BLOOD COUNT 5.1 X10'3 (4.5-11.0)
[2020-09-20 11:43] LABS: ALBUMIN 4.1 G/DL (3.4-5.0); BLOOD UREA NITROGEN 19 MG/DL (7-18); BUN/CREATININE RATIO 15.3 (5.4-32.0); CALCIUM 8.7 MG/DL (8.5-10.1); CHLORIDE 108 MMOL/L (99-107); CREATININE 1.24 MG/DL (0.60-1.10); GLUCOSE 99 MG/DL (70-104); TOTAL CARBON DIOXIDE 24.7 MMOL/L (24-32); eGFR 61 ML/MIN
[2020-09-20 11:45] LABS: ANION GAP 11 (8-16); POTASSIUM 4.1 MMOL/L (3.5-5.1); SODIUM 144 MMOL/L (135-145)
[2020-09-20 11:46] LABS: PARTIAL THROMBOPLASTIN TIME 24 SECONDS (22-32)
[~2020-09-25] VITALS: Ht 182.9 cm; Wt 95.3 kg
[2020-09-25] VITALS (8 sets, daily range): BP systolic 136–187; BP diastolic 86–111
[~2020-09-25 10:32] MED LIST changes: +ATOR20TA66 PO; -CLOP75TA15 PO; +ERGO400C PO; +EVOL140P3 SQ; -FURO-150 PO; +LOP25T PO; -METO-395 PO; +PANT-47 PO; +TICA90TA PO; -aspirin 81mg tab.chew ONE; -heparin, porcine-25,000 units/D5-250ml premix IV ONE; -normal saline 1000ML IV soln ONE
[2020-09-25] MEDS ORDERED: diphenhydrAMINE 25mg capsule PO PRN (10:50)
[2020-09-25] MEDS ORDERED: normal saline 1,000 ML IV SCH (10:50)
[2020-09-25] MEDS ORDERED: LORazepam 0.5 MG tablet PO PRN (10:50)
[2020-09-25] MEDS ORDERED: TICA90TA2 PO (11:09)
[2020-09-25] MEDS ORDERED: LOSA50TA64 PO (11:10)
[2020-09-25] MEDS ORDERED: midazolam 1 mg/ML 2ml injection ONE ×2 (12:16→13:04)
[2020-09-25] MEDS ORDERED: fentaNYL/PF 50MCG/1 ML 2ML syringe ONE (12:16)
[2020-09-25] MEDS ORDERED: LIDOcaine 1% (10mg/ml)w/preservative injection 20ml MDV ONE (12:23)
[2020-09-25] MEDS ORDERED: iohexol 350MG/ML 100ml bottle IV ONE ×2 (12:24→13:18)
[2020-09-25] MEDS ORDERED: heparin 1,000unit/ml 10ml vial 10 ML ONE (12:27)
[2020-09-25] MEDS ORDERED: verapamil 2.5 mg/ml inj IV ONE (13:01)
[2020-09-25] MEDS ORDERED: nitroGLYCERIN-Tridil 50MG/D5W 250 ML IV ONE (13:01)
[2020-09-25] MEDS ORDERED: ticagrelor 90mg tablet ONE (13:21)
[2020-09-25] MEDS ORDERED: OXAZEpam 15mg capsule PO PRN (13:55)
[2020-09-25] MEDS ORDERED: proCHLORperazine 10 MG/2 ml inj IV PRN (13:55)
[2020-09-25] MEDS ORDERED: HYDROcodone/acetaminophen 10/325mg tab PO PRN (13:55)
[2020-09-25] MEDS ORDERED: acetaminophen 325mg tablet PO PRN (13:55)
[2020-09-25] MEDS ORDERED: HYDROcodone/acetaminophen 5mg/325mg tablet PO PRN (13:55)
[2020-09-25] MEDS ORDERED: ondansetron/PF 4mg/2ml inj IV PRN (13:55)
== END 2020-09-25 15:55 | disposition home or self-care (01) ==
LOC: SSTAY O 10:32
PROVIDERS: ATTEND Internal Medicine Interventional Cardiology
DX: I25.810 Atherosclerosis of coronary artery bypass graft(s) without angina pectoris (principal); I11.0 Hypertensive heart disease with heart failure; I50.22 Chronic systolic (congestive) heart failure; N40.0 Benign prostatic hyperplasia without lower urinary tract symptoms; E78.5 Hyperlipidemia, unspecified; I25.2 Old myocardial infarction; G47.10 Hypersomnia, unspecified; Z79.82 Long term (current) use of aspirin; Z79.899 Other long term (current) drug therapy; Z95.1 Presence of aortocoronary bypass graft; Z95.5 Presence of coronary angioplasty implant and graft; Z88.8 Allergy status to other drugs, medicaments and biological substances
CPT/HCPCS: 36415; 80048; 85025; 85610; 85730; 93005; 99152; 99153; C1725; C1751; C1769; C1874; C1894; C9600; J1644; J2001; J2250; J3010; J7030; Q9967; A4620; A6258; J3490

== ENCOUNTER 2021-01-08 11:01 | Emergency (ER) | payer BC ==
[~2021-01-08] VITALS: Ht 177.8 cm; Wt 95.5 kg
[~2021-01-08 11:01] MED LIST changes: -ATOR20TA66 PO; -LOP25T PO; -PANT-47 PO; -TICA90TA PO; +TICA90TA2 PO
[2021-01-08] MEDS ORDERED: aspirin 81mg tab.chew PO ONE (12:00)
[2021-01-08] MEDS ORDERED: nitroGLYCERIN 0.4mg SUBLingual tab SL PRN (12:00)
[2021-01-08 12:16] LABS: BASOPHILS % (AUTO) 0.7 % (0-1); EOSINOPHILS # (AUTO) 0.1 X10'3 (0-0.9); EOSINOPHILS % (AUTO) 1.2 % (0-6); HEMATOCRIT 47.1 % (42.0-52.0); HEMOGLOBIN 16.4 g/dl (14.0-17.9); LYMPHOCYTES # (AUTO) 1.1 X10'3 (1.1-4.8); LYMPHOCYTES % (AUTO) 18.6 % (21-51); MEAN CORPUSCULAR HEMOGLOBIN 30.4 PG (27.0-31.0); MEAN CORPUSCULAR HGB CONC 34.8 g/dL (33.0-36.5); MEAN CORPUSCULAR VOLUME 87.2 FL (78-98); MEAN PLATELET VOLUME 8.3 FL (7.4-10.4); MONOCYTES # (AUTO) 0.5 X10'3 (0-0.9); NEUTROPHILS # (AUTO) 4.2 X10'3 (1.8-7.7); NEUTROPHILS % (AUTO) 70.5 % (42-75); PLATELET COUNT 242 X10'3 (140-440); RED CELL DISTRIBUTION WIDTH 13.4 % (11.5-14.5); WHITE BLOOD COUNT 5.9 X10'3 (4.5-11.0)
[2021-01-08 12:36] LABS: ALANINE AMINOTRANSFERASE 28 U/L (12-78); ALBUMIN 4.1 G/DL (3.4-5.0); ALBUMIN/GLOBULIN RATIO 1.1 (1.1-1.5); ALKALINE PHOSPHATASE 84 IU/L (46-116); ANION GAP 10 (8-16); ASPARTATE AMINO TRANSFERASE 15 U/L (10-37); BILIRUBIN,TOTAL 2.2 MG/DL (0.1-1.0); BLOOD UREA NITROGEN 24 MG/DL (7-18); BUN/CREATININE RATIO 16.2 (5.4-32.0); CHLORIDE 103 MMOL/L (99-107); CREATININE 1.48 MG/DL (0.60-1.10); GLUCOSE 120 MG/DL (70-104); SODIUM 142 MMOL/L (135-145); TOTAL CARBON DIOXIDE 29.2 MMOL/L (24-32); eGFR 50 ML/MIN
[2021-01-08 12:54] LABS: POTASSIUM 2.9 MMOL/L (3.5-5.1)
[2021-01-08] MEDS ORDERED: potassium Cl 20 mEq SR tablet PO STA (13:14)
[2021-01-08 18:26] VITALS: BP 184/103
== END 2021-01-08 18:58 | disposition home or self-care (01) ==
LOC: ER 11:02
DX: R07.89 Other chest pain (principal); I25.10 Atherosclerotic heart disease of native coronary artery without angina pectoris; I10 Essential (primary) hypertension; Z87.442 Personal history of urinary calculi; Z95.5 Presence of coronary angioplasty implant and graft; Z79.899 Other long term (current) drug therapy; Z79.82 Long term (current) use of aspirin
CPT/HCPCS: 36415; 71045; 80053; 83880; 84484; 85025; 93005; 99285